=== PATIENT | female | born 1950 | race Caucasian/White ===

== ENCOUNTER 2018-07-26 10:33 | Inpatient (IN) | payer MEDICARE, MEDICAID ==
[2018-07-26 11:04] LABS: ABSOLUTE BASOPHILS # (AUTO) 0.1 10^3/uL (0.0-0.2); ABSOLUTE EOSINOPHILS # (AUTO) 0.1 10^3/uL (0.0-0.6); ABSOLUTE LYMPHOCYTES (AUTO) 0.5 10^3/uL (0.5-4.7); ABSOLUTE MONOCYTES (AUTO) 0.6 10^3/uL (0.1-1.4); ABSOLUTE NEUT (AUTO) 4.4 10^3/uL (1.7-8.2); BASOPHILS % (AUTO) 1.2 % (0-2); EOSINOPHILS % (AUTO) 1.5 % (0-6); HEMATOCRIT 33.7 % (36.0-47.0); HEMOGLOBIN 10.9 g/dL (12.0-15.5); MEAN CORPUSCULAR HEMOGLOBIN 27.2 pg (27.0-33.4); MEAN CORPUSCULAR HGB CONC 32.4 g/dL (32.0-36.0); MEAN CORPUSCULAR VOLUME 84 fl (80-97); MONOCYTES % (AUTO) 11.3 % (3-13); PLATELET COUNT 153 10^3/uL (150-450); RED BLOOD COUNT 4.03 10^6/uL (3.72-5.28); RED CELL DISTRIBUTION WIDTH 18.9 % (11.5-14.0); TOTAL CELLS COUNTED % (AUTO) 100 %; WHITE BLOOD COUNT 5.7 10^3/uL (4.0-10.5)
[2018-07-26 11:14] LABS: ALANINE AMINOTRANSFERASE 62 U/L (9-52); ALKALINE PHOSPHATASE 105 U/L (38-126); ANION GAP 15 (5-19); ASPARTATE AMINO TRANSFERASE 25 U/L (14-36); BILIRUBIN,DIRECT 1.6 mg/dL (0.0-0.4); BILIRUBIN,TOTAL 2.2 mg/dL (0.2-1.3); BLOOD UREA NITROGEN 20 mg/dL (7-20); CALCIUM 8.6 mg/dL (8.4-10.2); CARBON DIOXIDE 28 mmol/L (22-30); CHLORIDE 99 mmol/L (98-107); CREATINE KINASE 27 U/L (30-135); GLUCOSE 119 mg/dL (75-110); POTASSIUM 3.8 mmol/L (3.6-5.0); TOTAL PROTEIN 6.6 g/dL (6.3-8.2)
--- NOTE | 2018-07-26 11:19 | RADIOLOGY REPORT (SQ) ---
EXAM DESCRIPTION: CHEST SINGLE VIEW COMPLETED DATE/TIME: 07/26/2018 11:02 am REASON FOR STUDY: SOB COMPARISON: None. EXAM PARAMETERS: NUMBER OF VIEWS: One view. TECHNIQUE: Single frontal radiographic view of the chest acquired. RADIATION DOSE: NA LIMITATIONS: None. FINDINGS: LUNGS AND PLEURA: No opacities, masses or pneumothorax. No pleural effusion. MEDIASTINUM AND HILAR STRUCTURES: No masses. Contour normal. HEART AND VASCULAR STRUCTURES: The heart is enlarged. No failure. BONES: No acute findings. HARDWARE: Sternotomy wires are in place. OTHER: No other significant finding. IMPRESSION: Cardiomegaly. No failure. No consolidation TECHNICAL DOCUMENTATION: JOB ID: [id number] [employer]- All Rights Reserved Reading location - IP/workstation name: [email or web address]
[2018-07-26 11:26] LABS: CREATINE KINASE MB 0.83 ng/mL (<4.55); INTERNATIONAL RATION (INR) 1.26; NT PRO BNP 9030 pg/mL (5-900); PROTHROMBIN TIME 16.4 SEC (11.4-15.4)
[2018-07-26 11:27] LABS: PARTIAL THROMBOPLASTIN TIME 36.3 SEC (23.5-35.8)
[2018-07-26 11:31] LABS: TROPONIN I < 0.012 ng/mL
[2018-07-26 12:07] LABS: APPEARANCE,URINE SLIGHTLY-CLOUDY; BILIRUBIN,URINE NEGATIVE (NEGATIVE); COLOR,URINE YELLOW; GLUCOSE, URINE NEGATIVE (NEGATIVE); KETONES,URINE NEGATIVE (NEGATIVE); LEUKOCYTE ESTERASE,URINE NEGATIVE (NEGATIVE); NITRITE,URINE NEGATIVE (NEGATIVE); PROTEIN,URINE 100 mg/dL (NEGATIVE)
--- NOTE | 2018-07-26 12:08 | ER Document Report ---
ED General - General Chief Complaint: Shortness Of Breath Stated Complaint: SHORTNESS OF BREATH Time Seen by Provider: 07/26/18 11:58 Notes: Patient says that she is feeling short of breath and congested with cough productive of some small amount of phlegm. She has a history of COPD, stopped smoking 10 years ago, and is also been told in the past that she has CHF. She has heart disease including stents in her coronary arteries and an aortic valve replacement in September of this year. She also has atrial fibrillation which was first discovered in September. She is on warfarin. Has not noted any fevers. She does not have home oxygen and is not on any current steroids, etc. Patient traveled here by plane to visit from [place] one week ago. She has been having this chest congestion and difficulty breathing since arriving here. She also has chronic swelling of both legs, but notes that both lower legs started getting red when she was traveling here last week. She has had both knees replaced. TRAVEL OUTSIDE OF THE [place] IN LAST 30 DAYS: No - Related Data Allergies/Adverse Reactions: haloperidol [From Haldol] Allergy (Verified 07/26/18 11:29) lorazepam [From Ativan] Allergy (Verified 07/26/18 11:29) Past Medical History - Social History Smoking Status: Former Smoker - Stopped about 10 years ago. Chew tobacco use (# tins/day): No Frequency of alcohol use: None Drug Abuse: None Family History: Reviewed & Not Pertinent Patient has suicidal ideation: No Patient has homicidal ideation: No - Past Medical History Cardiac Medical History: Reports: Hx Atrial Fibrillation, Hx Congestive Heart Failure, Hx Coronary Artery Disease, Hx Hypertension, Other - Aortic valve replaced in September, Pulmonary Medical History: Reports: Hx COPD Past Surgical History: Reports: Hx Cardiac Catheterization - 2 stents, Hx Cardiac Surgery - Aortic valve replacement., Hx Hysterectomy, Hx Orthopedic Surgery - Bilateral TKR Review of Systems - Review of Systems Notes: REVIEW OF SYSTEMS: CONSTITUTIONAL : Denies fever. EENT: Denies eye, ear, nose or mouth or throat pain or other symptoms. CARDIOVASCULAR: Denies chest pain. Chronic lymphedema of the lower legs. RESPIRATORY: See HPI. GASTROINTESTINAL: Denies abdominal pain or nausea, vomiting, or diarrhea. GENITOURINARY: Denies difficulty or painful urinating, urinary frequency, blood in urine. MUSCULOSKELETAL: Denies back or neck pain. Denies joint pain or swelling. SKIN: Denies rash or skin lesions. Erythema of the lower extremities from the knees to the feet bilateral. NEUROLOGICAL: Denies LOC or altered mental status. Denies headache. Denies sensory loss or motor deficits. ALL OTHER SYSTEMS REVIEWED AND NEGATIVE. Physical Exam - Vital signs Vitals: Pulse Ox 100 07/26/18 10:45 Interpretation: Normal Notes: PHYSICAL EXAMINATION: GENERAL: Well-appearing, in no acute distress. HEAD: Atraumatic, normocephalic. EYES: Pupils equal round and reactive to light, extraocular movements intact. ENT: oropharynx clear without exudates. Moist mucous membranes. NECK: Normal range of motion, supple. LUNGS: Breath sounds with bilateral wheezes but good airflow. HEART: Irregularly irregular rate and rhythm. Unable to appreciate a murmur. ABDOMEN: Soft, nontender. No guarding or rebound. No masses. BACK: No tenderness throughout entire back. EXTREMITIES: Bilateral chronic lyymphedema with erythema and warmth to the touch from the knees to the feet. NEUROLOGICAL: Normal speech, normal gait. Normal sensory, motor, and reflex exams. Awake, alert, and oriented x3. Cranial nerves normal. PSYCH: Normal mood, normal affect. SKIN: Warm, dry, no rashes. Course - Re-evaluation Re-evalutation: 07/26/18 15:46 Patient had a couple of nebulizer treatments during her stay. They helped her breathing and she was comfortable. CTA was obtained but was negative for pulmonary emboli. Hospitalist contacted and will admit the patient for further care of her COPD exacerbation, CHF, and cellulitis of the legs. 07/26/18 15:52 Patient's INR is only 1.26 which is not in the therapeutic range desired. On questioning, patient acknowledges that she missed taking a few of her Coumadin pills this past week during her travels. - Vital Signs Vital signs: Temp Pulse Resp BP Pulse Ox 19 142/89 H 97 07/26/18 14:11 07/26/18 14:11 07/26/18 14:11 - Laboratory Result Diagrams: 07/26/18 10:40 07/26/18 10:40 Laboratory results interpreted by me: 07/26/18 07/26/18 07/26/18 10:40 10:40 10:40 Hgb 10.9 L Hct 33.7 L RDW 18.9 H Lymphocytes % 9.0 L PT APTT Est GFR (Non-Af Amer) 55 L Glucose 119 H Total Bilirubin 2.2 H Direct Bilirubin 1.6 H ALT 62 H Creatine Kinase 27 L NT-Pro-B Natriuret Pep 9030 H Urine Protein Urine Urobilinogen 07/26/18 07/26/18 10:40 11:20 Hgb Hct RDW Lymphocytes % PT 16.4 H APTT 36.3 H Est GFR (Non-Af Amer) Glucose Total Bilirubin Direct Bilirubin ALT Creatine Kinase NT-Pro-B Natriuret Pep Urine Protein 100 H Urine Urobilinogen 4.0 H - Diagnostic Test Radiology results interpreted by me: 07/26/18 12:10 Chest x-ray shows cardiomegaly but no overt failure. - EKG Interpretation by Me Rate: Tachycardia - Rate of 112. Rhythm: A.Fib Critical Care Note - Critical Care Note Total time excluding time spent on procedures (mins): 40 Discharge - Discharge Clinical Impression: CHF (congestive heart failure), Cellulitis of left lower leg, Cellulitis of right leg, COPD exacerbation Condition: Stable Disposition: ADMITTED INPATIENT Admitting Provider: Hospitalist Unit Admitted: [facility]
[2018-07-26] MEDS ORDERED: IPRATROPIUM/ALBUTEROL 0.5-2.5 MG/3 ML AMPUL NEB ONE (12:10)
[2018-07-26] MEDS ORDERED: FUROSEMIDE INJ/PF 20 MG/2 ML SDV IV ONE (12:11)
[2018-07-26] MEDS ORDERED: ONDANSETRON HCL INJ/PF 4 MG/2 ML SDV IV ONE (12:17)
[2018-07-26] MEDS ORDERED: METHYLPREDNISOLONE INJ 125 MG/2 ML SDV IV ONE (13:20)
--- NOTE | 2018-07-26 14:16 | RADIOLOGY REPORT (SQ) ---
EXAM DESCRIPTION: CTA CHEST COMPLETED DATE/TIME: 07/26/2018 2:03 pm REASON FOR STUDY: Chr lymphedema legs, erythema,fly from [place] 1 wk shortness of breath, chest pain COMPARISON: None. TECHNIQUE: CT scan of the chest performed using helical scanning technique with dynamic intravenous contrast injection. Images reviewed with lung, soft tissue and bone windows. Reconstructed coronal and sagittal MPR images reviewed. Additional 3 dimensional post-processing performed to develop Maximal Intensity Projection images (HI P). All images stored on PACS. All CT scanners at this facility use dose modulation, iterative reconstruction, and/or weight based d osing when appropriate to reduce radiation dose to as low as reasonably achievable (ALARA). [facility]: Dose Right [facility]: CareDose [facility]: Dose Right [facility]: Teradose 4D [facility]: Headroom CONTRAST TYPE AND DOSE: 70 mL Omnipaque 350- low osmolar. Contrast bolus optimized for the pulmonary arteries. Not diagnostic for the aorta. RENAL FUNCTION: Creatinine 1.0 RADIATION DOSE: CT Rad equipment meets quality standard of care and radiation dose reduction techniq ues were employed. CTDIvol: 29.8 - 35.9 mGy. DLP: 1327 mGy-cm. . LIMITATIONS: None. FINDINGS: LUNGS AND PLEURA: Minimal airspace disease at both lung bases, likely atelectasis. Pneumo wallace could not entirely be excluded. No perihilar airspace disease worrisome for pulmonary edema. No pleural effusion. No pneumothorax. No worrisome pulmonary nodules. AORTA AND GREAT VESSELS: No aneurysm. Contrast bolus not optimized for the aorta. HEART: No pericardial effusion. Old sternotomy for aortic valve replacement. Calcified coronary jeremiah kary with old CABG. There is moderate to marked cardiomegaly. PULMONARY ARTERIES: No emboli visualized in the main pulmonary arteries or the segmental branches. HILAR AND MEDIASTINAL STRUCTURES: No identified masses or abnormal nodes. HARDWARE: Sternotomy with aortic valve UPPER ABDOMEN: Small amount of ascites in the upper abdomen THYROID AND OTHER SOFT TISSUES: No masses. No adenopathy. BONES: No acute or significant finding. 3D MIPS: Confirm above findings. OTHER: No other significant finding. IMPRESSION: No CT angio evidence of acute pulmonary emboli. Minimal bibasilar airspace disease likely atelectasis COMMENT: Quality ID # [id number]: Final reports with documentation of one or more dose reduction techniques (e.g., Automated exposure control, adjustment of the mA and/or kV according to patient size, use of iterative reconstruction technique) TECHNICAL DOCUMENTATION: JOB ID: [id number] [employer]- All Rights Reserved Reading location - IP/workstation name: [facility]
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
[2018-07-26] MEDS: DOCUSATE SODIUM 100 MG CAPSULE PO SCH (19:34)
[2018-07-26] MEDS: ASPIRIN 81 MG TABLET, CHEWABLE PO SCH (19:34)
[2018-07-26] MEDS: LEVOFLOXACIN 750 MG/D5W RTU 750 MG/150 ML RTUPB IV SCH (19:34)
[2018-07-26] MEDS: LEVALBUTEROL HCL NEB 1.25 MG/3 ML AMPUL NEB SCH ×2 (20:06→23:55)
[2018-07-26] MEDS ORDERED: NITROGLYCERIN 0.4 MG/TAB 25 TAB/BOTTLE ONE (21:22)
[2018-07-26] MEDS: VENLAFAXINE HCL 75 MG TABLET PO SCH (21:26)
[2018-07-26] MEDS: FUROSEMIDE INJ/PF 40 MG/4 ML SDV IV SCH (21:27)
[2018-07-26] MEDS ORDERED: WARFARIN SODIUM 2.5 MG TABLET PO SCH (22:00)
[2018-07-26] MEDS: MELATONIN 5 MG TABLET PO PRN (23:26)
[2018-07-27] MEDS: OXYCODONE-ACETAMINOPHEN 5-325 MG TABLET PO PRN ×2 (03:18→17:03)
[2018-07-27] MEDS: LEVALBUTEROL HCL NEB 1.25 MG/3 ML AMPUL NEB SCH ×5 (03:45→19:55)
[2018-07-27 05:00] LABS: HEMATOCRIT 32.4 % (36.0-47.0); HEMOGLOBIN 10.5 g/dL (12.0-15.5); MEAN CORPUSCULAR HGB CONC 32.5 g/dL (32.0-36.0); MEAN CORPUSCULAR VOLUME 83 fl (80-97); PLATELET COUNT 139 10^3/uL (150-450); RED CELL DISTRIBUTION WIDTH 18.8 % (11.5-14.0); WHITE BLOOD COUNT 3.5 10^3/uL (4.0-10.5)
[2018-07-27 05:06] LABS: INTERNATIONAL RATION (INR) 1.27; PROTHROMBIN TIME 16.5 SEC (11.4-15.4)
[2018-07-27 05:23] LABS: ALBUMIN 3.8 g/dL (3.5-5.0); ANION GAP 17 (5-19); BLOOD UREA NITROGEN 21 mg/dL (7-20); CARBON DIOXIDE 26 mmol/L (22-30); CHLORIDE 99 mmol/L (98-107); GLUCOSE 185 mg/dL (75-110); POTASSIUM 4.2 mmol/L (3.6-5.0); SODIUM 141.5 mmol/L (137-145); TOTAL PROTEIN 6.8 g/dL (6.3-8.2)
[2018-07-27 05:25] LABS: ALANINE AMINOTRANSFERASE 49 U/L (9-52); ALKALINE PHOSPHATASE 81 U/L (38-126); ASPARTATE AMINO TRANSFERASE 24 U/L (14-36); BILIRUBIN,DIRECT 1.6 mg/dL (0.0-0.4); CALCIUM 8.8 mg/dL (8.4-10.2)
[2018-07-27 06:15] LABS: ARTERIAL BLOOD BASE EXCESS 4.3 mmol/L; ARTERIAL BLOOD FIO2 21%; ARTERIAL BLOOD H2CO3 1.72 mmol/L (1.05-1.35); ARTERIAL BLOOD O2 SATURATION 94.9 % (94-98); ARTERIAL BLOOD PH 7.35 (7.35-7.45); ARTERIAL BLOOD PO2 79.1 mmHg (80-100); ARTERIAL BLOOD TOTAL CO2 32.7 mmol/L (21-25)
[2018-07-27] MEDS: LANSOPRAZOLE 15 MG TAB.RAP.DR PO SCH ×2 (06:41→17:04)
[2018-07-27] MEDS ORDERED: MAGNESIUM SULFATE/D5W 1 GM/100 ML RTUPB IV ONE (08:45)
--- NOTE | 2018-07-27 08:47 | PDOC PROGRESS REPORT ---
Subjective Progress Note for:: 07/27/18 Subjective:: 07/27/2018. No acute events overnight. Patient is stating that she could not get a good night sleep because of having shortness of breath and anxiety. She was not able to tolerate BiPAP. On my encounter patient just woke up receiving her neb treatments she does not seem to be in any distress and she is saying compared to yesterday she is feeling better, she has been p.o. tolerant and she is having normal bowel and bladder functions. She denies any fever, chest pain , nausea, vomiting, diarrhea, constipation or any urinary symptoms. She stating that her mechanical aortic valve is bioprosthetic but he is she does not remember what type of stent she has. We will attempt to get medical records. Blood pressure has been within normal limits, she has been afebrile, pulse rate of 52-116, FiO2 of 20-32%, saturating in the 90s. CBC CMP within normal limits , INR today is 1.27, ABG she has a carbon dioxide of 57 and PO2 of 79%, room air , CMP looks within normal limits with a BUN of 21 and creatinine of 1.24, A1c is 5.9,. Plan is to continue strict in and out, empiric antibiotics, IV steroids, nebs, BiPAP. We will get a new echo and also attempt to get her medical records. Reason For Visit: CHF,COPD EXACERBATION Physical Exam Vital Signs: Temp Pulse Resp BP Pulse Ox 97.9 F 87 16 125/78 94 07/27/18 07:11 07/27/18 08:39 07/27/18 08:39 07/27/18 07:11 07/27/18 08:39 Intake & Output 07/26/18 07/27/18 07/28/18 06:59 06:59 06:59 Intake Total 508 Output Total 1999 Balance -1492 Weight 136.2 kg Results Laboratory Results: 07/27/18 04:21 07/27/18 04:21 07/27/18 07/27/18 07/27/18 04:21 04:21 05:44 WBC 3.5 L RBC 3.90 Hgb 10.5 L Hct 32.4 L MCV 83 MCH 27.0 MCHC 32.5 RDW 18.8 H Plt Count 139 L Carbonic Acid 1.72 H HCO3/H2CO3 Ratio 18:1 ABG pH 7.35 ABG pCO2 57.0 H ABG pO2 79.1 L ABG HCO3 31.0 H ABG O2 Saturation 94.9 ABG Base Excess 4.3 FiO2 21% Sodium 141.5 Potassium 4.2 Chloride 99 Carbon Dioxide 26 Anion Gap 17 BUN 21 H Creatinine 1.24 Est GFR ( Amer) 52 L Est GFR (Non-Af Amer) 43 L Glucose 185 H Calcium 8.8 Magnesium 1.5 L Total Bilirubin 2.0 H AST 24 ALT 49 Alkaline Phosphatase 81 Total Protein 6.8 Albumin 3.8 Impressions: Chest X-Ray 07/26/18 10:45 IMPRESSION: Cardiomegaly. No failure. No consolidation Chest/Abdomen CTA 07/26/18 13:22 IMPRESSION: No CT angio evidence of acute pulmonary emboli. Minimal bibasilar airspace disease likely atelectasis Assessment & Plan - Diagnosis (1) COPD exacerbation Is this a current diagnosis for this admission?: Yes Plan: Nebs, empiric antibiotics, BiPAP, IV steroids. RR 16-20, SPO2 94% on 3 L with FiO2 of 32%. 07/26/2018 CTA negative for any embolus. (2) Stasis dermatitis of both legs Is this a current diagnosis for this admission?: Yes Plan: Will start on diuretics, leg elevation, strict in and out, cardiac diet. (3) CHF (congestive heart failure) Is this a current diagnosis for this admission?: Yes Plan: Continue strict in and out, volume restriction, cardiac diet, diuretics. Fluid balance -1400 07/27/2018. 2D echo shows LV ejection fraction within normal limits. RVSP 30- 40 mmHg. (4) CAD (coronary artery disease) Is this a current diagnosis for this admission?: Yes Plan: Status post PCI to his stents. Patient is not on antiplatelets. Records unavailable. Continue statins, antiplatelets, beta blockers, TAMMY. Get the records. (5) Hx of aortic valve replacement Is this a current diagnosis for this admission?: No Plan: and September 2017. Bioprosthetic as per patient. Patient is INR subtherapeutic. Will start warfarin with a goal of INR 2.5-3.5 Coumadin 5 mg today. INR tomorrow. We will try to get records. (6) Hypertension Is this a current diagnosis for this admission?: Yes Plan: Restart home meds. Normotensive (7) Hyperlipidemia Is this a current diagnosis for this admission?: Yes Plan: Restart home meds. Recommend diet and lifestyle modification. (8) Hx of migraine headaches Is this a current diagnosis for this admission?: Yes Plan: Start home meds. (9) A-fib Qualifiers: Atrial fibrillation type: chronic Qualified Code(s): I48.2 - Chronic atrial fibrillation Is this a current diagnosis for this admission?: No Plan: [id number] Score 4. Rate controlled, continue beta-blockers continue Coumadin. Daily INR with a goal of 2-2.5.
--- NOTE | 2018-07-27 09:17 | EKG REPORT ---
SEVERITY:- ABNORMAL ECG - ATRIAL FIBRILLATION NONSPECIFIC T ABNORMALITIES, LATERAL LEADS : Confirmed by: Paty Osorio 27-Jul-2018 09:17:22
--- NOTE | 2018-07-27 09:17 | EKG REPORT ---
SEVERITY:- ABNORMAL ECG - ATRIAL FIBRILLATION, V-RATE 74-160 BORDERLINE T WAVE ABNORMALITIES : Confirmed by: Paty Osorio 27-Jul-2018 09:17:28
[2018-07-27] MEDS: GABAPENTIN 300 MG CAPSULE PO SCH (09:20)
[2018-07-27] MEDS: METOPROLOL TARTRATE 50 MG TABLET PO SCH ×2 (09:20→21:10)
[2018-07-27] MEDS: DOCUSATE SODIUM 100 MG CAPSULE PO SCH ×2 (09:20→17:04)
[2018-07-27] MEDS: ASPIRIN 81 MG TABLET, CHEWABLE PO SCH (09:20)
[2018-07-27] MEDS: FUROSEMIDE INJ/PF 40 MG/4 ML SDV IV SCH ×2 (09:21→21:11)
--- NOTE | 2018-07-27 09:41 | XCELERA REPORT ---
[address] [address] Transthoracic Echocardiogram Report Name: BOAZ FREIRE Age: 68 yrs Gender: Female : 1950 Patient Status: Inpatient Patient Location: [address] [place] [address] Study Date: 07/26/2018 06:45 PM Height: 62 in Weight: 303 lb BSA: 2.3 m2 Procedure: A complete two-dimensional transthoracic echocardiogram was performed (2D, M-mode, spectral and color flow Doppler). The study was technically difficult with many images being suboptimal in quality. Reason For Study: CHF exacerbation Ordering Physician: ANGEL RANDHAWA Performed By: Aurea Sierra Interpretation Summary The left ventricular ejection fraction is within normal limits. There is mild concentric left ventricular hypertrophy. The left ventricle is grossly normal size. Wall motion cannot be accurately commented on, but no definite regional wall motion abnormalities noted. Borderline right ventricular enlargement. The left atrium is mildly dilated. The right atrium is mildly dilated. There is no mitral valve stenosis. There is a mild to moderate amount of mitral regurgitation There is mild aortic stenosis There is a peak gradient of 20-25 mm of Hg. There is a trace amount of aortic regurgitation There is a trace to mild amount of tricuspid regurgitation Best estimated right ventricular systolic pressure is elevated at 30-40mmHg. The aortic root is not well visualized. The inferior vena cava appeared dilated and decreased < 50% with respiration (RAP 15-20 mmHg) Minimal pericardial effusion. MMode/2D Measurements & Calculations RVDd: 2.7 cm LVIDd: 6.3 cm FS: 22.4 % Ao root diam: 2.9 cm IVSd: 1.2 cm LVIDs: 4.9 cm EDV(Teich): 204.5 ml Ao root area: 6.8 cm2 LVPWd: 0.97 cm ESV(Teich): 114.0 ml LA dimension: 3.9 cm EF(Teich): 44.3 % Doppler Measurements & Calculations MV E max jeramy: MV P1/2t max jeramy: Ao V2 max: LV V1 max P.2 cm/sec 129.1 cm/sec 218.5 cm/sec 4.2 mmHg MV P1/2t: 54.6 msec Ao max PG: LV V1 max: MVA(P1/2t): 4.0 cm2 19.1 mmHg 102.5 cm/sec MV dec slope: 692.0 cm/sec2 MV dec time: 0.17 sec PA V2 max: PI end-d jeramy: TR max jeramy: MV P1/2t-pr_phl: 85.1 cm/sec 129.4 cm/sec 257.0 cm/sec 54.6 msec PA max P.9 mmHg TR max P.4 mmHg Left Ventricle The left ventricle is grossly normal size. There is mild concentric left ventricular hypertrophy. The left ventricular ejection fraction is within normal limits. LV diastolic function could not be adequately assessed due to atrial fibrilation. Wall motion cannot be accurately commented on, but no definite regional wall motion abnormalities noted. Right Ventricle Borderline right ventricular enlargement. There is normal right ventricular wall thickness. Right ventricular function cannot be assessed due to poor image quality. Atria The right atrium is mildly dilated. The left atrium is mildly dilated. Interarterial septum not well visualized and not well dopplered. Cannot comment on ASD/PFO presence. Mitral Valve There is mild mitral leaflet calcification. There is mild mitral annular calcification. There is no mitral valve stenosis. There is a mild to moderate amount of mitral regurgitation. Aortic Valve The aortic valve is moderately calcified. There is mild aortic stenosis. There is a peak gradient of 20-25 mm of Hg. There is a trace amount of aortic regurgitation. Tricuspid Valve The tricuspid valve is not well visualized secondary to technical limitations. There is no tricuspid stenosis. There is a trace to mild amount of tricuspid regurgitation. Best estimated right ventricular systolic pressure is elevated at 30-40mmHg. Pulmonic Valve The pulmonic valve is not well visualized. Great Vessels The aortic root is not well visualized. The inferior vena cava appeared dilated and decreased < 50% with respiration (RAP 15-20 mmHg). Effusions Minimal pericardial effusion. : ANGEL RANDHAWA > Paty Osorio
[2018-07-27] MEDS: BUPROPION HCL 100 MG TABLET PO SCH ×2 (13:56→21:08)
[2018-07-27] MEDS ORDERED: WARFARIN SODIUM 2.5 MG TABLET PO SCH (15:10)
[2018-07-27] MEDS: LEVOFLOXACIN 750 MG/D5W RTU 750 MG/150 ML RTUPB IV SCH (20:07)
[2018-07-27] MEDS: WARFARIN SODIUM 3 MG TABLET PO SCH (21:09)
[2018-07-27] MEDS: WARFARIN SODIUM 4 MG TABLET PO SCH (21:09)
[2018-07-27] MEDS: MELATONIN 5 MG TABLET PO PRN (21:10)
[2018-07-27] MEDS: VENLAFAXINE HCL 75 MG TABLET PO SCH (21:10)
[2018-07-27] MEDS: ACETAMINOPHEN 325 MG TABLET PO PRN (21:11)
[2018-07-28] MEDS: OXYCODONE-ACETAMINOPHEN 5-325 MG TABLET PO PRN ×3 (00:14→21:54)
[2018-07-28] MEDS: PROMETHAZINE HCL 25 MG TABLET PO PRN (00:14)
[2018-07-28] MEDS: LEVALBUTEROL HCL NEB 1.25 MG/3 ML AMPUL NEB SCH ×7 (00:29→23:36)
[2018-07-28 05:20] LABS: ABSOLUTE LYMPHOCYTES (AUTO) 0.9 10^3/uL (0.5-4.7); ABSOLUTE MONOCYTES (AUTO) 0.6 10^3/uL (0.1-1.4); ABSOLUTE NEUT (AUTO) 3.8 10^3/uL (1.7-8.2); BASOPHILS % (AUTO) 0.6 % (0-2); EOSINOPHILS % (AUTO) 0.3 % (0-6); HEMATOCRIT 31.9 % (36.0-47.0); HEMOGLOBIN 10.5 g/dL (12.0-15.5); LYMPHOCYTES % (AUTO) 16.8 % (13-45); MEAN CORPUSCULAR HEMOGLOBIN 27.4 pg (27.0-33.4); MEAN CORPUSCULAR HGB CONC 32.8 g/dL (32.0-36.0); MEAN CORPUSCULAR VOLUME 83 fl (80-97); MONOCYTES % (AUTO) 11.2 % (3-13); PLATELET COUNT 148 10^3/uL (150-450); RED BLOOD COUNT 3.82 10^6/uL (3.72-5.28); RED CELL DISTRIBUTION WIDTH 18.5 % (11.5-14.0); SEGMENTED NEUTROPHILS % (AUTO) 71.1 % (42-78); TOTAL CELLS COUNTED % (AUTO) 100 %; WHITE BLOOD COUNT 5.3 10^3/uL (4.0-10.5)
[2018-07-28] MEDS: LANSOPRAZOLE 15 MG TAB.RAP.DR PO SCH ×2 (05:35→17:12)
[2018-07-28] MEDS: BUPROPION HCL 100 MG TABLET PO SCH ×3 (05:35→21:48)
[2018-07-28 06:02] LABS: ALANINE AMINOTRANSFERASE 51 U/L (9-52); ALBUMIN 3.6 g/dL (3.5-5.0); ALKALINE PHOSPHATASE 76 U/L (38-126); ANION GAP 14 (5-19); ASPARTATE AMINO TRANSFERASE 23 U/L (14-36); BILIRUBIN,DIRECT 1.6 mg/dL (0.0-0.4); BILIRUBIN,TOTAL 1.9 mg/dL (0.2-1.3); BLOOD UREA NITROGEN 29 mg/dL (7-20); CALCIUM 8.8 mg/dL (8.4-10.2); CARBON DIOXIDE 30 mmol/L (22-30); CHLORIDE 99 mmol/L (98-107); GLUCOSE 92 mg/dL (75-110); POTASSIUM 3.9 mmol/L (3.6-5.0); SODIUM 142.7 mmol/L (137-145); TOTAL PROTEIN 6.6 g/dL (6.3-8.2)
[2018-07-28] MEDS ORDERED: FUROSEMIDE INJ/PF 40 MG/4 ML SDV IV SCH (08:41)
[2018-07-28] MEDS: DOCUSATE SODIUM 100 MG CAPSULE PO SCH ×2 (09:29→17:12)
[2018-07-28] MEDS: METOPROLOL TARTRATE 50 MG TABLET PO SCH ×2 (09:29→21:48)
[2018-07-28] MEDS: ASPIRIN 81 MG TABLET, CHEWABLE PO SCH (09:29)
[2018-07-28] MEDS: GABAPENTIN 300 MG CAPSULE PO SCH (09:29)
[2018-07-28] MEDS: GUAIFENESIN SYRP 200 MG/10 ML UDC PO SCH ×4 (09:34→21:47)
[2018-07-28] MEDS: SUMATRIPTAN SUCCINATE 50 MG TABLET PO PRN (09:35)
[2018-07-28] MEDS ORDERED: FUROSEMIDE INJ/PF 20 MG/2 ML SDV IV SCH (10:00)
[2018-07-28 10:43] LABS: INTERNATIONAL RATION (INR) 1.19; PROTHROMBIN TIME 15.7 SEC (11.4-15.4)
[2018-07-28] MEDS ORDERED: FUROSEMIDE 40 MG TABLET PO SCH (11:45)
--- NOTE | 2018-07-28 11:47 | PDOC PROGRESS REPORT ---
Subjective Progress Note for:: 07/28/18 Subjective:: 07/27/2018. No acute events overnight. Patient is stating that she could not get a good night sleep because of having shortness of breath and anxiety. She was not able to tolerate BiPAP. On my encounter patient just woke up receiving her neb treatments she does not seem to be in any distress and she is saying compared to yesterday she is feeling better, she has been p.o. tolerant and she is having normal bowel and bladder functions. She denies any fever, chest pain , nausea, vomiting, diarrhea, constipation or any urinary symptoms. She stating that her mechanical aortic valve is bioprosthetic but he is she does not remember what type of stent she has. We will attempt to get medical records. Blood pressure has been within normal limits, she has been afebrile, pulse rate of 52-116, FiO2 of 20-32%, saturating in the 90s. CBC CMP within normal limits , INR today is 1.27, ABG she has a carbon dioxide of 57 and PO2 of 79%, room air , CMP looks within normal limits with a BUN of 21 and creatinine of 1.24, A1c is 5.9,. Plan is to continue strict in and out, empiric antibiotics, IV steroids, nebs, BiPAP. We will get a new echo and also attempt to get her medical records. 07/28/2018. No acute events overnight. 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 She used BiPAP overnight and she tolerated well. Yesterday she was able to walk around the halls without any significant dyspnea on exertion. She is denying any fever , chest pain, chills, nausea, vomiting, diarrhea or any urinary symptoms. Reason For Visit: CHF,COPD EXACERBATION Physical Exam Vital Signs: Temp Pulse Resp BP Pulse Ox 97.8 F 88 16 103/60 98 07/28/18 07:40 07/28/18 08:17 07/28/18 08:17 07/28/18 07:40 07/28/18 08:17 Intake & Output 07/27/18 07/28/18 07/29/18 06:59 06:59 06:59 Intake Total 508 828 Output Total 1999 8003 Balance -1492 -1342 Weight 136.2 kg 131.9 kg General appearance: PRESENT: morbidly obese Head exam: PRESENT: atraumatic, normocephalic Respiratory exam: PRESENT: clear to auscultation ken. ABSENT: rales, rhonchi, wheezes Cardiovascular exam: PRESENT: RRR. ABSENT: diastolic murmur, rubs, systolic murmur GI/Abdominal exam: PRESENT: normal bowel sounds, soft. ABSENT: distended, guarding, mass, organolmegaly, rebound, tenderness Extremities exam: PRESENT: pedal edema - Trace Neurological exam: PRESENT: alert, awake, oriented to person, oriented to place , oriented to time, oriented to situation, CN II-XII grossly intact. ABSENT: motor sensory deficit Results Laboratory Results: 07/28/18 04:59 07/28/18 04:59 07/28/18 07/28/18 04:59 04:59 WBC 5.3 RBC 3.82 Hgb 10.5 L Hct 31.9 L MCV 83 MCH 27.4 MCHC 32.8 RDW 18.5 H Plt Count 148 L Seg Neutrophils % 71.1 Lymphocytes % 16.8 Monocytes % 11.2 Eosinophils % 0.3 Basophils % 0.6 Absolute Neutrophils 3.8 Absolute Lymphocytes 0.9 Absolute Monocytes 0.6 Absolute Eosinophils 0.0 Absolute Basophils 0.0 Sodium 142.7 Potassium 3.9 Chloride 99 Carbon Dioxide 30 Anion Gap 14 BUN 29 H Creatinine 1.41 H Est GFR ( Amer) 45 L Est GFR (Non-Af Amer) 37 L Glucose 92 Calcium 8.8 Magnesium 1.6 Total Bilirubin 1.9 H AST 23 ALT 51 Alkaline Phosphatase 76 Total Protein 6.6 Albumin 3.6 Impressions: Chest X-Ray 07/26/18 10:45 IMPRESSION: Cardiomegaly. No failure. No consolidation Chest/Abdomen CTA 07/26/18 13:22 IMPRESSION: No CT angio evidence of acute pulmonary emboli. Minimal bibasilar airspace disease likely atelectasis Assessment & Plan - Diagnosis (1) COPD exacerbation Is this a current diagnosis for this admission?: Yes Plan: Nebs, empiric antibiotics, BiPAP, IV steroids. 07/28/2018. RR 14-24, SPO2 98 - 100 3 L FiO2 of 32% 07/27/2018. RR 16-20, SPO2 94 3 L FiO2 of 32%. 07/26/2018 CTA negative for any embolus. (2) Stasis dermatitis of both legs Is this a current diagnosis for this admission?: Yes Plan: Improving. Will start on diuretics, leg elevation, strict in and out, cardiac diet. (3) CHF (congestive heart failure) Is this a current diagnosis for this admission?: Yes Plan: Diastolic. SBP 117-132, afebrile, RR 14-24, HR 79-105, SPO2 98 - 200 on 3 L with FiO2 of 32 % Weight 131.9 kg down by 4 kg from admission. Fluid balance -1400 Strict in and out, volume restriction, cardiac diet, diuretics. 07/27/2018. 2D echo shows LV ejection fraction within normal limits. RVSP 30- 40 mmHg. (4) CAD (coronary artery disease) Is this a current diagnosis for this admission?: Yes Plan: Status post PCI to his stents. Patient is not on antiplatelets. Records unavailable. Continue statins, antiplatelets, beta blockers, TAMMY. Get the records. (5) Hx of aortic valve replacement Is this a current diagnosis for this admission?: No Plan: Replaced and September 2017. Bioprosthetic as per patient. Patient is INR subtherapeutic. Will start warfarin with a goal of INR 2.5-3.5 Coumadin 5 mg today. INR tomorrow. We will try to get records. (6) Hypertension Is this a current diagnosis for this admission?: Yes Plan: Restart home meds. Normotensive (7) Hyperlipidemia Is this a current diagnosis for this admission?: Yes Plan: Restart home meds. Recommend diet and lifestyle modification. (8) Hx of migraine headaches Is this a current diagnosis for this admission?: Yes Plan: Start home meds. (9) A-fib Qualifiers: Atrial fibrillation type: chronic Qualified Code(s): I48.2 - Chronic atrial fibrillation Is this a current diagnosis for this admission?: No Plan: [id number] Score 4. Rate controlled, continue beta-blockers continue Coumadin. Daily INR with a goal of 2-2.5.
[2018-07-28] MEDS: FUROSEMIDE 20 MG TABLET PO SCH (17:15)
[2018-07-28] MEDS ORDERED: WARFARIN SODIUM 4 MG TABLET ONE (21:37)
[2018-07-28] MEDS ORDERED: VENLAFAXINE HCL 75 MG TABLET ONE (21:38)
[2018-07-28] MEDS: LEVOFLOXACIN 750 MG/D5W RTU 750 MG/150 ML RTUPB IV SCH (21:47)
[2018-07-28] MEDS: WARFARIN SODIUM 3 MG TABLET PO SCH (21:47)
[2018-07-28] MEDS: WARFARIN SODIUM 4 MG TABLET PO SCH (22:20)
[2018-07-28] MEDS: VENLAFAXINE HCL 75 MG TABLET PO SCH (22:20)
[2018-07-29] MEDS: LEVALBUTEROL HCL NEB 1.25 MG/3 ML AMPUL NEB SCH ×6 (04:14→23:37)
[2018-07-29] MEDS: BUPROPION HCL 100 MG TABLET PO SCH ×3 (06:06→21:33)
[2018-07-29] MEDS: LANSOPRAZOLE 15 MG TAB.RAP.DR PO SCH ×2 (06:06→17:27)
[2018-07-29 07:01] LABS: ABSOLUTE EOSINOPHILS # (AUTO) 0.1 10^3/uL (0.0-0.6); ABSOLUTE LYMPHOCYTES (AUTO) 1.1 10^3/uL (0.5-4.7); ABSOLUTE MONOCYTES (AUTO) 0.6 10^3/uL (0.1-1.4); ABSOLUTE NEUT (AUTO) 3.1 10^3/uL (1.7-8.2); BASOPHILS % (AUTO) 0.9 % (0-2); EOSINOPHILS % (AUTO) 1.2 % (0-6); HEMATOCRIT 35.6 % (36.0-47.0); HEMOGLOBIN 11.6 g/dL (12.0-15.5); MEAN CORPUSCULAR HEMOGLOBIN 27.3 pg (27.0-33.4); MEAN CORPUSCULAR HGB CONC 32.7 g/dL (32.0-36.0); MEAN CORPUSCULAR VOLUME 83 fl (80-97); MONOCYTES % (AUTO) 12.5 % (3-13); PLATELET COUNT 149 10^3/uL (150-450); RED BLOOD COUNT 4.27 10^6/uL (3.72-5.28); RED CELL DISTRIBUTION WIDTH 18.9 % (11.5-14.0); SEGMENTED NEUTROPHILS % (AUTO) 63.4 % (42-78); TOTAL CELLS COUNTED % (AUTO) 100 %; WHITE BLOOD COUNT 4.9 10^3/uL (4.0-10.5)
[2018-07-29 07:06] LABS: INTERNATIONAL RATION (INR) 1.16; PROTHROMBIN TIME 15.4 SEC (11.4-15.4)
[2018-07-29 07:31] LABS: ALANINE AMINOTRANSFERASE 46 U/L (9-52); ALBUMIN 3.9 g/dL (3.5-5.0); ALKALINE PHOSPHATASE 89 U/L (38-126); ANION GAP 15 (5-19); ASPARTATE AMINO TRANSFERASE 24 U/L (14-36); BILIRUBIN,DIRECT 1.4 mg/dL (0.0-0.4); BILIRUBIN,TOTAL 1.7 mg/dL (0.2-1.3); BLOOD UREA NITROGEN 28 mg/dL (7-20); CALCIUM 8.7 mg/dL (8.4-10.2); CARBON DIOXIDE 32 mmol/L (22-30); CHLORIDE 95 mmol/L (98-107); GLUCOSE 78 mg/dL (75-110); TOTAL PROTEIN 6.9 g/dL (6.3-8.2)
[2018-07-29] MEDS: ASPIRIN 81 MG TABLET, CHEWABLE PO SCH (08:41)
[2018-07-29] MEDS: METOPROLOL TARTRATE 50 MG TABLET PO SCH ×2 (08:41→21:33)
[2018-07-29] MEDS: DOCUSATE SODIUM 100 MG CAPSULE PO SCH ×4 (08:41→17:27)
[2018-07-29] MEDS: FUROSEMIDE 20 MG TABLET PO SCH ×2 (08:41→17:27)
[2018-07-29] MEDS: GUAIFENESIN SYRP 200 MG/10 ML UDC PO SCH ×4 (08:42→21:34)
[2018-07-29] MEDS: GABAPENTIN 300 MG CAPSULE PO SCH (08:42)
[2018-07-29] MEDS: SUMATRIPTAN SUCCINATE 50 MG TABLET PO PRN (08:42)
[2018-07-29] MEDS: PROMETHAZINE HCL 25 MG TABLET PO PRN ×2 (08:46→19:45)
[2018-07-29] MEDS ORDERED: BISACODYL 5 MG TABEC PO PRN (11:40)
[2018-07-29] MEDS ORDERED: POLYETHYLENE GLYCOL 3350 POWDER 17 GM/1 PACKET PO PRN (11:41)
--- NOTE | 2018-07-29 11:51 | PDOC PROGRESS REPORT ---
Subjective Progress Note for:: 07/29/18 Subjective:: 07/27/2018. No acute events overnight. Patient is stating that she could not get a good night sleep because of having shortness of breath and anxiety. She was not able to tolerate BiPAP. On my encounter patient just woke up receiving her neb treatments she does not seem to be in any distress and she is saying compared to yesterday she is feeling better, she has been p.o. tolerant and she is having normal bowel and bladder functions. She denies any fever, chest pain , nausea, vomiting, diarrhea, constipation or any urinary symptoms. She stating that her mechanical aortic valve is bioprosthetic but he is she does not remember what type of stent she has. We will attempt to get medical records. Blood pressure has been within normal limits, she has been afebrile, pulse rate of 52-116, FiO2 of 20-32%, saturating in the 90s. CBC CMP within normal limits , INR today is 1.27, ABG she has a carbon dioxide of 57 and PO2 of 79%, room air , CMP looks within normal limits with a BUN of 21 and creatinine of 1.24, A1c is 5.9,. Plan is to continue strict in and out, empiric antibiotics, IV steroids, nebs, BiPAP. We will get a new echo and also attempt to get her medical records. 07/28/2018. No acute events overnight. 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 She used BiPAP overnight and she tolerated well. Yesterday she was able to walk around the halls without any significant dyspnea on exertion. She is denying any fever , chest pain, chills, nausea, vomiting, diarrhea or any urinary symptoms. 07/29/2018. No acute events overnight. Patient was not able to tolerate her BiPAP however she says she had a good night sleep. On my encounter patient is resting comfortably in her bed in no apparent distress on 3 L of nasal cannula. She is p.o. tolerant and she was able to walk in the hallways with oxygen. She has not had a bowel movement for the last 2 days otherwise she is denying any fever, chills, nausea, vomiting, diarrhea or any constipation. She also wants to be restarted on Xanax that she takes at home nightly. Reason For Visit: CHF,COPD EXACERBATION Physical Exam Vital Signs: Temp Pulse Resp BP Pulse Ox 98.5 F 83 20 126/78 H 100 07/29/18 08:35 07/29/18 08:35 07/29/18 08:35 07/29/18 08:35 07/29/18 08:35 Intake & Output 07/28/18 07/29/18 07/30/18 06:59 06:59 06:59 Intake Total 828 696 Output Total 2170 300 Balance -1342 396 Weight 131.9 kg 131.8 kg 131.8 kg General appearance: PRESENT: no acute distress, well-developed, well-nourished Head exam: PRESENT: atraumatic, normocephalic Respiratory exam: PRESENT: clear to auscultation ken, decreased breath sounds. ABSENT: rales, rhonchi, wheezes Cardiovascular exam: PRESENT: RRR. ABSENT: diastolic murmur, rubs, systolic murmur GI/Abdominal exam: PRESENT: normal bowel sounds, soft. ABSENT: distended, guarding, mass, organolmegaly, rebound, tenderness Extremities exam: PRESENT: full ROM, other - Bilateral stasis dermatitis has improved.. ABSENT: calf tenderness, clubbing, pedal edema Neurological exam: PRESENT: alert, awake, oriented to person, oriented to place , oriented to time, oriented to situation, CN II-XII grossly intact. ABSENT: motor sensory deficit Results Laboratory Results: 07/29/18 06:26 07/29/18 06:26 07/29/18 07/29/18 06:26 06:26 WBC 4.9 RBC 4.27 Hgb 11.6 L Hct 35.6 L MCV 83 MCH 27.3 MCHC 32.7 RDW 18.9 H Plt Count 149 L Seg Neutrophils % 63.4 Lymphocytes % 22.0 Monocytes % 12.5 Eosinophils % 1.2 Basophils % 0.9 Absolute Neutrophils 3.1 Absolute Lymphocytes 1.1 Absolute Monocytes 0.6 Absolute Eosinophils 0.1 Absolute Basophils 0.0 Sodium 142.0 Potassium 4.0 Chloride 95 L Carbon Dioxide 32 H Anion Gap 15 BUN 28 H Creatinine 1.34 H Est GFR ( Amer) 48 L Est GFR (Non-Af Amer) 40 L Glucose 78 Calcium 8.7 Magnesium 1.6 Total Bilirubin 1.7 H AST 24 ALT 46 Alkaline Phosphatase 89 Total Protein 6.9 Albumin 3.9 07/27/18 22:15 Sputum Gram Stain - Final Impressions: Chest X-Ray 07/26/18 10:45 IMPRESSION: Cardiomegaly. No failure. No consolidation Chest/Abdomen CTA 07/26/18 13:22 IMPRESSION: No CT angio evidence of acute pulmonary emboli. Minimal bibasilar airspace disease likely atelectasis Assessment & Plan - Diagnosis (1) COPD exacerbation Is this a current diagnosis for this admission?: Yes Plan: Nebs, empiric antibiotics, BiPAP . Switch steroids to p.o. 07/29/2018 RR 18-20, pulse 69-93, SPO2 100% on 2 L FiO2 32%. 07/28/2018. RR 14-24, SPO2 98 - 100 3 L FiO2 of 32% 07/27/2018. RR 16-20, SPO2 94 3 L FiO2 of 32%. 07/26/2018 CTA negative for any embolus. On 2 L of home oxygen. Plan is to wean her off to 2 L of possible and discharged home tomorrow. (2) Stasis dermatitis of both legs Is this a current diagnosis for this admission?: Yes Plan: Improved. Will start on diuretics, leg elevation, strict in and out, cardiac diet. (3) CHF (congestive heart failure) Is this a current diagnosis for this admission?: Yes Plan: Diastolic. SBP 103-126, temperature 98.5, pulse 69-93, SPO2 100% on 2 L FiO2 32%. Weight: 131.8 kg down by about 4 kg since admission. Strict in and out, volume restriction, cardiac diet, diuretics. 07/27/2018. 2D echo shows LV ejection fraction within normal limits. RVSP 30- 40 mmHg. (4) CAD (coronary artery disease) Is this a current diagnosis for this admission?: Yes Plan: Status post PCI to his stents. Patient is not on antiplatelets. Records unavailable. Continue statins, antiplatelets, beta blockers, TAMMY. Get the records. (5) Hx of aortic valve replacement Is this a current diagnosis for this admission?: No Plan: Replaced and September 2017. Bioprosthetic as per patient. Patient is INR subtherapeutic. Will start warfarin with a goal of INR 2.5-3.5 She was scheduled to get 7 mg Coumadin yesterday but for some reason she only received 4 Called pharmacy to make sure that she gets 7 mg today. INR tomorrow. Adjust warfarin daily with a goal of INR of 2.3 - 3.5. (6) Hypertension Is this a current diagnosis for this admission?: Yes Plan: Controlled. SBP 103-126, temperature 98.5, pulse 69-93, SPO2 100% on 2 L FiO2 32%. (7) Hyperlipidemia Is this a current diagnosis for this admission?: Yes Plan: Restart home meds. Recommend diet and lifestyle modification. (8) Hx of migraine headaches Is this a current diagnosis for this admission?: Yes Plan: Start home meds. (9) A-fib Qualifiers: Atrial fibrillation type: chronic Qualified Code(s): I48.2 - Chronic atrial fibrillation Is this a current diagnosis for this admission?: No Plan: [id number] Score 4. Rate controlled, continue beta-blockers continue Coumadin. Daily INR with a goal of 2-2.5. (10) NASIM (acute kidney injury) Is this a current diagnosis for this admission?: Yes Plan: Prerenal. Likely due to over diuresis. Switch IV Lasix to p.o. 20 mg twice daily. Labs: WBC 4.9, Hgb 11.6, platelet 149, sodium 142, potassium 4.0, chloride 9 5, BUN 28, creatinine 1.34, fasting blood glucose 78 Weight: 131.8 kg down by about 4 kg since admission. Of note patient takes 40 mg of Lasix daily at home however as per sister patient is not compliant with her medications.
[2018-07-29] MEDS: OXYCODONE-ACETAMINOPHEN 5-325 MG TABLET PO PRN (13:49)
[2018-07-29] MEDS: VENLAFAXINE HCL 75 MG TABLET PO SCH (21:33)
[2018-07-29] MEDS: ALPRAZOLAM 0.5 MG TABLET PO SCH (21:33)
[2018-07-29] MEDS: LEVOFLOXACIN 750 MG/D5W RTU 750 MG/150 ML RTUPB IV SCH (21:34)
[2018-07-29] MEDS ORDERED: WARFARIN SODIUM 4 MG TABLET PO SCH (22:00)
[2018-07-29] MEDS ORDERED: WARFARIN SODIUM 3 MG TABLET PO SCH (22:00)
[2018-07-30] MEDS: LEVALBUTEROL HCL NEB 1.25 MG/3 ML AMPUL NEB SCH ×6 (04:13→23:59)
[2018-07-30] MEDS: BUPROPION HCL 100 MG TABLET PO SCH ×3 (05:15→21:07)
[2018-07-30] MEDS: LANSOPRAZOLE 15 MG TAB.RAP.DR PO SCH ×2 (05:15→17:02)
[2018-07-30 05:34] LABS: INTERNATIONAL RATION (INR) 1.22
[2018-07-30 05:36] LABS: ABSOLUTE EOSINOPHILS # (AUTO) 0.1 10^3/uL (0.0-0.6); ABSOLUTE LYMPHOCYTES (AUTO) 1.3 10^3/uL (0.5-4.7); ABSOLUTE MONOCYTES (AUTO) 0.5 10^3/uL (0.1-1.4); ABSOLUTE NEUT (AUTO) 2.4 10^3/uL (1.7-8.2); BASOPHILS % (AUTO) 0.8 % (0-2); EOSINOPHILS % (AUTO) 1.2 % (0-6); HEMATOCRIT 35.5 % (36.0-47.0); HEMOGLOBIN 11.5 g/dL (12.0-15.5); LYMPHOCYTES % (AUTO) 30.9 % (13-45); MEAN CORPUSCULAR HEMOGLOBIN 27.2 pg (27.0-33.4); MEAN CORPUSCULAR HGB CONC 32.4 g/dL (32.0-36.0); MEAN CORPUSCULAR VOLUME 84 fl (80-97); MONOCYTES % (AUTO) 11.9 % (3-13); PLATELET COUNT 149 10^3/uL (150-450); RED BLOOD COUNT 4.24 10^6/uL (3.72-5.28); RED CELL DISTRIBUTION WIDTH 18.4 % (11.5-14.0); SEGMENTED NEUTROPHILS % (AUTO) 55.2 % (42-78); TOTAL CELLS COUNTED % (AUTO) 100 %; WHITE BLOOD COUNT 4.3 10^3/uL (4.0-10.5)
[2018-07-30 06:04] LABS: ALANINE AMINOTRANSFERASE 41 U/L (9-52); ALBUMIN 3.9 g/dL (3.5-5.0); ALKALINE PHOSPHATASE 88 U/L (38-126); ANION GAP 15 (5-19); ASPARTATE AMINO TRANSFERASE 25 U/L (14-36); BILIRUBIN,DIRECT 1.4 mg/dL (0.0-0.4); BILIRUBIN,TOTAL 1.8 mg/dL (0.2-1.3); BLOOD UREA NITROGEN 24 mg/dL (7-20); CALCIUM 8.8 mg/dL (8.4-10.2); CARBON DIOXIDE 31 mmol/L (22-30); CHLORIDE 96 mmol/L (98-107); GLUCOSE 101 mg/dL (75-110); TOTAL PROTEIN 6.9 g/dL (6.3-8.2)
[2018-07-30] MEDS: PROMETHAZINE HCL 25 MG TABLET PO PRN (08:28)
[2018-07-30] MEDS: ASPIRIN 81 MG TABLET, CHEWABLE PO SCH (09:47)
[2018-07-30] MEDS: DOCUSATE SODIUM 100 MG CAPSULE PO SCH ×3 (09:47→17:02)
[2018-07-30] MEDS: GUAIFENESIN SYRP 200 MG/10 ML UDC PO SCH ×4 (09:48→21:07)
[2018-07-30] MEDS: METOPROLOL TARTRATE 50 MG TABLET PO SCH ×2 (09:48→21:07)
[2018-07-30] MEDS: FUROSEMIDE 20 MG TABLET PO SCH ×2 (09:48→17:02)
[2018-07-30] MEDS: GABAPENTIN 300 MG CAPSULE PO SCH (09:48)
--- NOTE | 2018-07-30 13:52 | PDOC PROGRESS REPORT ---
Subjective Progress Note for:: 07/30/18 Subjective:: 07/27/2018. No acute events overnight. Patient is stating that she could not get a good night sleep because of having shortness of breath and anxiety. She was not able to tolerate BiPAP. On my encounter patient just woke up receiving her neb treatments she does not seem to be in any distress and she is saying compared to yesterday she is feeling better, she has been p.o. tolerant and she is having normal bowel and bladder functions. She denies any fever, chest pain , nausea, vomiting, diarrhea, constipation or any urinary symptoms. She stating that her mechanical aortic valve is bioprosthetic but he is she does not remember what type of stent she has. We will attempt to get medical records. Blood pressure has been within normal limits, she has been afebrile, pulse rate of 52-116, FiO2 of 20-32%, saturating in the 90s. CBC CMP within normal limits , INR today is 1.27, ABG she has a carbon dioxide of 57 and PO2 of 79%, room air , CMP looks within normal limits with a BUN of 21 and creatinine of 1.24, A1c is 5.9,. Plan is to continue strict in and out, empiric antibiotics, IV steroids, nebs, BiPAP. We will get a new echo and also attempt to get her medical records. 07/28/2018. No acute events overnight. 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 She used BiPAP overnight and she tolerated well. Yesterday she was able to walk around the halls without any significant dyspnea on exertion. She is denying any fever , chest pain, chills, nausea, vomiting, diarrhea or any urinary symptoms. 07/29/2018. No acute events overnight. Patient was not able to tolerate her BiPAP however she says she had a good night sleep. On my encounter patient is resting comfortably in her bed in no apparent distress on 3 L of nasal cannula. She is p.o. tolerant and she was able to walk in the hallways with oxygen. She has not had a bowel movement for the last 2 days otherwise she is denying any fever, chills, nausea, vomiting, diarrhea or any constipation. She also wants to be restarted on Xanax that she takes at home nightly. 07/30/2018-and is still complaining of shortness of breath saying she needs oxygen via nasal cannula on a continuous basis. Other than that she is doing okay. Is not using the BiPAP at night because she is unable to tolerate it. Patient denies any fevers chills nausea vomiting diarrhea. Reason For Visit: CHF,COPD EXACERBATION Physical Exam Vital Signs: Temp Pulse Resp BP Pulse Ox 98.3 F 90 18 131/91 H 94 07/30/18 12:00 07/30/18 12:25 07/30/18 12:25 07/30/18 12:00 07/30/18 12:25 Intake & Output 07/29/18 07/30/18 07/31/18 06:59 06:59 06:59 Intake Total 696 2021 Output Total 300 Balance 396 2021 Weight 131.8 kg 131.6 kg General appearance: PRESENT: no acute distress Head exam: PRESENT: atraumatic Eye exam: PRESENT: PERRLA Mouth exam: PRESENT: moist Neck exam: ABSENT: carotid bruit, JVD, lymphadenopathy, thyromegaly Respiratory exam: PRESENT: decreased breath sounds, unlabored Cardiovascular exam: PRESENT: tachycardia Pulses: PRESENT: normal dorsalis pedis pul GI/Abdominal exam: PRESENT: normal bowel sounds, soft. ABSENT: distended, guarding, mass, organolmegaly, rebound, tenderness Rectal exam: PRESENT: deferred Neurological exam: PRESENT: alert, awake, oriented to person, oriented to place , oriented to time, oriented to situation, CN II-XII grossly intact. ABSENT: motor sensory deficit Psychiatric exam: PRESENT: appropriate affect, normal mood. ABSENT: homicidal ideation, suicidal ideation Results Laboratory Results: 07/30/18 04:08 07/30/18 04:08 07/30/18 07/30/18 04:08 04:08 WBC 4.3 RBC 4.24 Hgb 11.5 L Hct 35.5 L MCV 84 MCH 27.2 MCHC 32.4 RDW 18.4 H Plt Count 149 L Seg Neutrophils % 55.2 Lymphocytes % 30.9 Monocytes % 11.9 Eosinophils % 1.2 Basophils % 0.8 Absolute Neutrophils 2.4 Absolute Lymphocytes 1.3 Absolute Monocytes 0.5 Absolute Eosinophils 0.1 Absolute Basophils 0.0 Sodium 142.0 Potassium 4.0 Chloride 96 L Carbon Dioxide 31 H Anion Gap 15 BUN 24 H Creatinine 1.09 Est GFR ( Amer) > 60 Est GFR (Non-Af Amer) 50 L Glucose 101 Calcium 8.8 Total Bilirubin 1.8 H AST 25 ALT 41 Alkaline Phosphatase 88 Total Protein 6.9 Albumin 3.9 07/27/18 22:15 Sputum Gram Stain - Final 07/27/18 22:15 Sputum Sputum Culture - Final NORMAL LAURA Impressions: Chest X-Ray 07/26/18 10:45 IMPRESSION: Cardiomegaly. No failure. No consolidation Chest/Abdomen CTA 07/26/18 13:22 IMPRESSION: No CT angio evidence of acute pulmonary emboli. Minimal bibasilar airspace disease likely atelectasis Assessment & Plan - Diagnosis (1) COPD exacerbation Is this a current diagnosis for this admission?: Yes Plan: (1) COPD exacerbation Is this a current diagnosis for this admission?: Yes Plan: Nebs, empiric antibiotics, BiPAP . Switch steroids to p.o. 07/29/2018 RR 18-20, pulse 69-93, SPO2 100% on 2 L FiO2 32%. 07/28/2018. RR 14-24, SPO2 98 - 100 3 L FiO2 of 32% 07/27/2018. RR 16-20, SPO2 94 3 L FiO2 of 32%. 07/26/2018 CTA negative for any embolus. On 2 L of home oxygen. Plan is to wean her off to 2 L of possible and discharged home tomorrow. 07/30/2018-patient is on 2 L nasal cannula pulse ox is 96-98%. Patient is still complaining of shortness of breath even at rest. During the hospital stay initially she is on BiPAP now she says she is unable to tolerate the BiPAP at night. The of the chest was negative for PE. On 2 L home oxygen. States she is not feeling well to go home today. (2) Stasis dermatitis of both legs Is this a current diagnosis for this admission?: Yes Plan: Improved. Will start on diuretics, leg elevation, strict in and out, cardiac diet. 07/30/2018-with diuretics leg elevation and cardiac diet status dermatitis source improvement. (3) CHF (congestive heart failure) Is this a current diagnosis for this admission?: Yes Plan: Diastolic. SBP 103-126, temperature 98.5, pulse 69-93, SPO2 100% on 2 L FiO2 32%. Weight: 131.8 kg down by about 4 kg since admission. Strict in and out, volume restriction, cardiac diet, diuretics. 07/27/2018. 2D echo shows LV ejection fraction within normal limits. RVSP 30- 40 mmHg. 07/30/2018-patient is not in fluid overload today during the examination. Left ventricular ejection fraction within normal limits. Today's weight is 131.6 kg. (4) CAD (coronary artery disease) Is this a current diagnosis for this admission?: Yes Plan: Status post PCI to his stents. Patient is not on antiplatelets. Records unavailable. Continue statins, antiplatelets, beta blockers, TAMMY. Get the records. 07/30/2018-patient has history of coronary artery disease status post PCI with stents. She is on warfarin 7 million p.o. nightly, aspirin 81 mg p.o. daily, Lasix 20 mg p.o. twice daily, ALT 50 mg p.o. every 12 hours. INR is still subtherapeutic 1.22. To increase the Coumadin to 10 mg p.o. daily. (5) Hx of aortic valve replacement Is this a current diagnosis for this admission?: Yes Plan: Replaced and September 2017. Bioprosthetic as per patient. Patient is INR subtherapeutic. Will start warfarin with a goal of INR 2.5-3.5 She was scheduled to get 7 mg Coumadin yesterday but for some reason she only received 4 Called pharmacy to make sure that she gets 7 mg today. INR tomorrow. Adjust warfarin daily with a goal of INR of 2.3 - 3.5. 07/30/2018-patient has history of aortic valve replacement with bioprosthesis. Patient is on Coumadin 7 mg p.o. nightly. It is 1.2 to today. To Coumadin to 10 mg p.o. nightly we will check her INR tomorrow. (6) Hypertension Is this a current diagnosis for this admission?: Yes Plan: 07/30/2018-the blood pressure today is 116/85. Stable. (7) A-fib Qualifiers: Atrial fibrillation type: chronic Qualified Code(s): I48.2 - Chronic atrial fibrillation Is this a current diagnosis for this admission?: No Plan: [id number] Score 4. Rate controlled, continue beta-blockers continue Coumadin. Daily INR with a goal of 2-2.5. 07/30/2018 pulse rate today's 90. Patient is on beta-blockers and Coumadin. I increased the Coumadin to 10 mg p.o. nightly. Will check PT/INR tomorrow. (8) NASIM (acute kidney injury) Is this a current diagnosis for this admission?: Yes Plan: Prerenal. Likely due to over diuresis. Switch IV Lasix to p.o. 20 mg twice daily. Labs: WBC 4.9, Hgb 11.6, platelet 149, sodium 142, potassium 4.0, chloride 9 5, BUN 28, creatinine 1.34, fasting blood glucose 78 Weight: 131.8 kg down by about 4 kg since admission. Of note patient takes 40 mg of Lasix daily at home however as per sister patient is not compliant with her medications. 06/2018-creatinine today is 1.09. Acute kidney injury is resolving. Patient is on Lasix 20 mg p.o. twice daily. - Time Time Spent with patient: 15-24 minutes Smoking Cessation Education: 3 to 10 minutes Anticipated discharge: Home
[2018-07-30 15:44] LABS: INTERNATIONAL RATION (INR) 1.32
[2018-07-30] MEDS: INSULIN LISPRO 100 UNIT/ML 3 ML VIAL SUBCUT SCH (16:57)
[2018-07-30] MEDS: LEVOFLOXACIN 750 MG TABLET PO SCH (17:02)
[2018-07-30] MEDS: OXYCODONE-ACETAMINOPHEN 5-325 MG TABLET PO PRN ×2 (17:02→23:52)
[2018-07-30] MEDS: ALBUTEROL SULFATE 0.083% NEB 2.5 MG/3 ML AMPUL NEB SCH (17:46)
[2018-07-30] MEDS ORDERED: (PENDING PHARMACY ID) (Potassium Chloride [Klor-Con M10] 10 MEQ) PO SCH (18:00)
[2018-07-30] MEDS: WARFARIN SODIUM 5 MG TABLET PO SCH (21:07)
[2018-07-30] MEDS: ALPRAZOLAM 0.5 MG TABLET PO SCH (21:08)
[2018-07-30] MEDS: VENLAFAXINE HCL 75 MG TABLET PO SCH (21:08)
[2018-07-30] MEDS: MELATONIN 5 MG TABLET PO PRN (21:41)
[2018-07-31] MEDS: LEVALBUTEROL HCL NEB 1.25 MG/3 ML AMPUL NEB SCH ×4 (03:55→19:54)
[2018-07-31] MEDS: LANSOPRAZOLE 15 MG TAB.RAP.DR PO SCH ×2 (05:12→16:33)
[2018-07-31] MEDS: BUPROPION HCL 100 MG TABLET PO SCH ×3 (05:12→21:12)
[2018-07-31] MEDS ORDERED: LANSOPRAZOLE 30 MG TAB.RAP.DR PO SCH (06:00)
[2018-07-31 07:17] LABS: APPEARANCE,URINE SLIGHTLY-CLOUDY; BILIRUBIN,URINE NEGATIVE (NEGATIVE); COLOR,URINE YELLOW; GLUCOSE, URINE NEGATIVE (NEGATIVE); KETONES,URINE NEGATIVE (NEGATIVE); LEUKOCYTE ESTERASE,URINE NEGATIVE (NEGATIVE); NITRITE,URINE NEGATIVE (NEGATIVE); PROTEIN,URINE 100 mg/dL (NEGATIVE); URINE SPECIFIC GRAVITY 1.019
[2018-07-31] MEDS: ALBUTEROL SULFATE 0.083% NEB 2.5 MG/3 ML AMPUL NEB SCH ×2 (08:00)
[2018-07-31] MEDS: INSULIN LISPRO 100 UNIT/ML 3 ML VIAL SUBCUT SCH ×3 (08:43→16:13)
[2018-07-31] MEDS ORDERED: POTASSIUM CHLORIDE 10 MEQ CAPSULE.ER PO ONE (08:45)
[2018-07-31] MEDS: ASPIRIN 81 MG TABLET, CHEWABLE PO SCH (08:53)
[2018-07-31] MEDS: METOPROLOL TARTRATE 50 MG TABLET PO SCH ×2 (08:53→21:11)
[2018-07-31] MEDS: DOCUSATE SODIUM 100 MG CAPSULE PO SCH ×2 (08:53→16:33)
[2018-07-31] MEDS: GABAPENTIN 300 MG CAPSULE PO SCH (08:53)
[2018-07-31] MEDS: FUROSEMIDE 20 MG TABLET PO SCH ×2 (08:53→16:33)
[2018-07-31] MEDS: POTASSIUM CHLORIDE 10 MEQ CAPSULE.ER PO SCH (09:02)
[2018-07-31] MEDS: GUAIFENESIN SYRP 200 MG/10 ML UDC PO SCH ×4 (09:03→21:12)
[2018-07-31] MEDS: TIOTROPIUM BROMIDE DPI 5 CAP/KIT (18 MCG/CAP) IH SCH (09:03)
[2018-07-31] MEDS ORDERED: (PENDING PHARMACY ID) (Fluticasone/Vilanterol [Breo Ellipta 100-25 Mcg Inh] 1 PUFF) IH SCH (10:00)
[2018-07-31] MEDS: OXYCODONE-ACETAMINOPHEN 5-325 MG TABLET PO PRN ×2 (10:12→16:33)
[2018-07-31] MEDS ORDERED: ALBUTEROL SULFATE 0.083% NEB 2.5 MG/3 ML AMPUL NEB PRN (11:30)
--- NOTE | 2018-07-31 16:10 | PDOC PROGRESS REPORT ---
Subjective Progress Note for:: 07/31/18 Subjective:: 07/27/2018. No acute events overnight. Patient is stating that she could not get a good night sleep because of having shortness of breath and anxiety. She was not able to tolerate BiPAP. On my encounter patient just woke up receiving her neb treatments she does not seem to be in any distress and she is saying compared to yesterday she is feeling better, she has been p.o. tolerant and she is having normal bowel and bladder functions. She denies any fever, chest pain , nausea, vomiting, diarrhea, constipation or any urinary symptoms. She stating that her mechanical aortic valve is bioprosthetic but he is she does not remember what type of stent she has. We will attempt to get medical records. Blood pressure has been within normal limits, she has been afebrile, pulse rate of 52-116, FiO2 of 20-32%, saturating in the 90s. CBC CMP within normal limits , INR today is 1.27, ABG she has a carbon dioxide of 57 and PO2 of 79%, room air , CMP looks within normal limits with a BUN of 21 and creatinine of 1.24, A1c is 5.9,. Plan is to continue strict in and out, empiric antibiotics, IV steroids, nebs, BiPAP. We will get a new echo and also attempt to get her medical records. 07/28/2018. No acute events overnight. 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 She used BiPAP overnight and she tolerated well. Yesterday she was able to walk around the halls without any significant dyspnea on exertion. She is denying any fever , chest pain, chills, nausea, vomiting, diarrhea or any urinary symptoms. 07/29/2018. No acute events overnight. Patient was not able to tolerate her BiPAP however she says she had a good night sleep. On my encounter patient is resting comfortably in her bed in no apparent distress on 3 L of nasal cannula. She is p.o. tolerant and she was able to walk in the hallways with oxygen. She has not had a bowel movement for the last 2 days otherwise she is denying any fever, chills, nausea, vomiting, diarrhea or any constipation. She also wants to be restarted on Xanax that she takes at home nightly. 07/30/2018-and is still complaining of shortness of breath saying she needs oxygen via nasal cannula on a continuous basis. Other than that she is doing okay. Is not using the BiPAP at night because she is unable to tolerate it. Patient denies any fevers chills nausea vomiting diarrhea. 07/31/2018-patient still in mild shortness of breath on oxygen via nasal cannula. Socks on 2 L is 97%. Afebrile. No acute events in the last 24 hours. Reason For Visit: CHF,COPD EXACERBATION Physical Exam Vital Signs: Temp Pulse Resp BP Pulse Ox 97.6 F 95 18 137/99 H 97 07/31/18 12:00 07/31/18 14:22 07/31/18 14:22 07/31/18 12:00 07/31/18 12:00 Intake & Output 07/30/18 07/31/18 08/01/18 06:59 06:59 06:59 Intake Total 2021 620 Balance 2021 620 Weight 131.6 kg 131.4 kg General appearance: PRESENT: mild distress Head exam: PRESENT: atraumatic Eye exam: PRESENT: PERRLA Mouth exam: PRESENT: moist Neck exam: ABSENT: carotid bruit, JVD, lymphadenopathy, thyromegaly Respiratory exam: PRESENT: decreased breath sounds, tachypnea Cardiovascular exam: PRESENT: tachycardia GI/Abdominal exam: PRESENT: normal bowel sounds, soft. ABSENT: distended, guarding, mass, organolmegaly, rebound, tenderness Neurological exam: PRESENT: alert, awake, oriented to person, oriented to place , oriented to time, oriented to situation, CN II-XII grossly intact. ABSENT: motor sensory deficit Psychiatric exam: PRESENT: appropriate affect, normal mood. ABSENT: homicidal ideation, suicidal ideation Results Laboratory Results: 07/30/18 04:08 07/30/18 04:08 07/31/18 06:47 Urine Color YELLOW Urine Appearance SLIGHTLY-CLOUDY Urine pH 5.0 Ur Specific Dell 1.019 Urine Protein 100 H Urine Glucose (UA) NEGATIVE Urine Ketones NEGATIVE Urine Blood NEGATIVE Urine Nitrite NEGATIVE Ur Leukocyte Esterase NEGATIVE Urine WBC (Auto) 2 Urine RBC (Auto) 0 Impressions: Chest X-Ray 07/26/18 10:45 IMPRESSION: Cardiomegaly. No failure. No consolidation Chest/Abdomen CTA 07/26/18 13:22 IMPRESSION: No CT angio evidence of acute pulmonary emboli. Minimal bibasilar airspace disease likely atelectasis Assessment & Plan - Diagnosis (1) COPD exacerbation Is this a current diagnosis for this admission?: Yes Plan: (1) COPD exacerbation Is this a current diagnosis for this admission?: Yes Plan: Nebs, empiric antibiotics, BiPAP . Switch steroids to p.o. 07/29/2018 RR 18-20, pulse 69-93, SPO2 100% on 2 L FiO2 32%. 07/28/2018. RR 14-24, SPO2 98 - 100 3 L FiO2 of 32% 07/27/2018. RR 16-20, SPO2 94 3 L FiO2 of 32%. 07/26/2018 CTA negative for any embolus. On 2 L of home oxygen. Plan is to wean her off to 2 L of possible and discharged home tomorrow. 07/30/2018-patient is on 2 L nasal cannula pulse ox is 96-98%. Patient is still complaining of shortness of breath even at rest. During the hospital stay initially she is on BiPAP now she says she is unable to tolerate the BiPAP at night. The of the chest was negative for PE. On 2 L home oxygen. States she is not feeling well to go home today. 07/31/2018 patient is in mild shortness of breath on 2 L nasal cannula oxygen pulse ox is 94-96%. She is still complaining of shortness of breath with minimal activity. Patient says she is unable to tolerate BiPAP at night. Continue the nebulizer treatments. Patient is on albuterol nebulizations every 6 as needed and Xopenex nebulizations every 6 scheduled. Sputum cultures and blood cultures are negative. She is on levofloxacin 750 mg p.o. daily. Planning to discharge tomorrow may be with 2 L oxygen. (2) Stasis dermatitis of both legs Is this a current diagnosis for this admission?: Yes Plan: Improved. Will start on diuretics, leg elevation, strict in and out, cardiac diet. 07/30/2018-with diuretics leg elevation and cardiac diet status dermatitis source improvement. 07/31/2018-plan is to continue the present management. (3) CHF (congestive heart failure) Is this a current diagnosis for this admission?: Yes Plan: Diastolic. SBP 103-126, temperature 98.5, pulse 69-93, SPO2 100% on 2 L FiO2 32%. Weight: 131.8 kg down by about 4 kg since admission. Strict in and out, volume restriction, cardiac diet, diuretics. 07/27/2018. 2D echo shows LV ejection fraction within normal limits. RVSP 30- 40 mmHg. 07/30/2018-patient is not in fluid overload today during the examination. Left ventricular ejection fraction within normal limits. Today's weight is 131.6 kg. 07/31/2018 patient is not in fluid overload. Chest was clear. No pedal edema. Left ventricular ejection fraction within normal. Weight is 131.4 cages today. She lost more than 5 kg. Left ventricular diastolic function was not properly assessed because of atrial fibrillation. (4) CAD (coronary artery disease) Is this a current diagnosis for this admission?: Yes Plan: Status post PCI to his stents. Patient is not on antiplatelets. Records unavailable. Continue statins, antiplatelets, beta blockers, TAMMY. Get the records. 07/30/2018-patient has history of coronary artery disease status post PCI with stents. She is on warfarin 7 million p.o. nightly, aspirin 81 mg p.o. daily, Lasix 20 mg p.o. twice daily, ALT 50 mg p.o. every 12 hours. INR is still subtherapeutic 1.22. To increase the Coumadin to 10 mg p.o. daily. 07/31/2018-patient has history of coronary artery disease and atrial fibrillation. INR is 1.32. Patient is on Coumadin 10 mg p.o. nightly. We are going to check PT/INR tomorrow. (5) Hx of aortic valve replacement Is this a current diagnosis for this admission?: Yes Plan: and September 2017. Bioprosthetic as per patient. Patient is INR subtherapeutic. Will start warfarin with a goal of INR 2.5-3.5 She was scheduled to get 7 mg Coumadin yesterday but for some reason she only received 4 Called pharmacy to make sure that she gets 7 mg today. INR tomorrow. Adjust warfarin daily with a goal of INR of 2.3 - 3.5. 07/30/2018-patient has history of aortic valve replacement with bioprosthesis. Patient is on Coumadin 7 mg p.o. nightly. It is 1.2 to today. To Coumadin to 10 mg p.o. nightly we will check her INR tomorrow. 07/31/2018 patient has history of aortic valve replacement with bioprosthesis. Coumadin 10 mg p.o. nightly. INR is 1.3 to subtherapeutic. Will check PT/INR tomorrow. (6) Hypertension Is this a current diagnosis for this admission?: Yes Plan: 07/30/2018-the blood pressure today is 116/85. Stable. 07/31/2018-patient's blood pressure is 121/67. Stable. Patient is on metoprolol 50 mg p.o. twice daily. (7) A-fib Qualifiers: Atrial fibrillation type: chronic Qualified Code(s): I48.2 - Chronic atrial fibrillation Is this a current diagnosis for this admission?: No Plan: [id number] Score 4. Rate controlled, continue beta-blockers continue Coumadin. Daily INR with a goal of 2-2.5. 07/30/2018 pulse rate today's 90. Patient is on beta-blockers and Coumadin. I increased the Coumadin to 10 mg p.o. nightly. Will check PT/INR tomorrow. 07/31/2018-patient's pulse rate is 95 today. Still in A. fib with rate controlled. (8) NASIM (acute kidney injury) Is this a current diagnosis for this admission?: Yes Plan: Prerenal. Likely due to over diuresis. Switch IV Lasix to p.o. 20 mg twice daily. Labs: WBC 4.9, Hgb 11.6, platelet 149, sodium 142, potassium 4.0, chloride 9 5, BUN 28, creatinine 1.34, fasting blood glucose 78 Weight: 131.8 kg down by about 4 kg since admission. Of note patient takes 40 mg of Lasix daily at home however as per sister patient is not compliant with her medications. 06/2018-creatinine today is 1.09. Acute kidney injury is resolving. Patient is on Lasix 20 mg p.o. twice daily. 07/31/2018-patient INR is 1.09. Acute kidney injury resolved. - Time Time Spent with patient: 15-24 minutes Medications reviewed and adjusted accordingly: Yes Anticipated discharge: Home
[2018-07-31] MEDS: LEVOFLOXACIN 750 MG TABLET PO SCH (16:35)
[2018-07-31 17:48] LABS: INTERNATIONAL RATION (INR) 1.49; PROTHROMBIN TIME 18.7 SEC (11.4-15.4)
[2018-07-31] MEDS: NYSTATIN/DEXAMETH/DIPHEN SUSP 120 ML PO SCH ×2 (19:06→21:12)
[2018-07-31] MEDS: ALPRAZOLAM 0.5 MG TABLET PO SCH (19:06)
[2018-07-31] MEDS: VENLAFAXINE HCL 75 MG TABLET PO SCH (21:11)
[2018-07-31] MEDS: WARFARIN SODIUM 5 MG TABLET PO SCH (21:11)
[2018-08-01] MEDS: LEVALBUTEROL HCL NEB 1.25 MG/3 ML AMPUL NEB SCH ×4 (02:01→19:47)
[2018-08-01] MEDS: LANSOPRAZOLE 15 MG TAB.RAP.DR PO SCH ×2 (05:16→17:03)
[2018-08-01] MEDS: BUPROPION HCL 100 MG TABLET PO SCH ×3 (05:16→21:18)
[2018-08-01] MEDS: INSULIN LISPRO 100 UNIT/ML 3 ML VIAL SUBCUT SCH ×3 (08:50→16:38)
[2018-08-01] MEDS: DOCUSATE SODIUM 100 MG CAPSULE PO SCH ×2 (09:00→17:03)
[2018-08-01] MEDS: POTASSIUM CHLORIDE 10 MEQ CAPSULE.ER PO SCH (09:00)
[2018-08-01] MEDS: GABAPENTIN 300 MG CAPSULE PO SCH (09:01)
[2018-08-01] MEDS: FUROSEMIDE 20 MG TABLET PO SCH ×2 (09:01→17:04)
[2018-08-01] MEDS: ALPRAZOLAM 0.5 MG TABLET PO SCH ×2 (09:01→17:03)
[2018-08-01] MEDS: METOPROLOL TARTRATE 50 MG TABLET PO SCH ×2 (09:01→21:18)
[2018-08-01] MEDS: ASPIRIN 81 MG TABLET, CHEWABLE PO SCH (09:01)
[2018-08-01] MEDS: GUAIFENESIN SYRP 200 MG/10 ML UDC PO SCH ×4 (09:02→21:18)
[2018-08-01] MEDS: TIOTROPIUM BROMIDE DPI 5 CAP/KIT (18 MCG/CAP) IH SCH (09:07)
[2018-08-01] MEDS: OXYCODONE-ACETAMINOPHEN 5-325 MG TABLET PO PRN ×2 (09:08→15:29)
[2018-08-01] MEDS: NYSTATIN/DEXAMETH/DIPHEN SUSP 120 ML PO SCH ×4 (09:11→21:19)
[2018-08-01] MEDS: LEVOFLOXACIN 750 MG TABLET PO SCH (17:53)
--- NOTE | 2018-08-01 18:23 | PDOC PROGRESS REPORT ---
Subjective Progress Note for:: 08/01/18 Subjective:: 07/27/2018. No acute events overnight. Patient is stating that she could not get a good night sleep because of having shortness of breath and anxiety. She was not able to tolerate BiPAP. On my encounter patient just woke up receiving her neb treatments she does not seem to be in any distress and she is saying compared to yesterday she is feeling better, she has been p.o. tolerant and she is having normal bowel and bladder functions. She denies any fever, chest pain , nausea, vomiting, diarrhea, constipation or any urinary symptoms. She stating that her mechanical aortic valve is bioprosthetic but he is she does not remember what type of stent she has. We will attempt to get medical records. Blood pressure has been within normal limits, she has been afebrile, pulse rate of 52-116, FiO2 of 20-32%, saturating in the 90s. CBC CMP within normal limits , INR today is 1.27, ABG she has a carbon dioxide of 57 and PO2 of 79%, room air , CMP looks within normal limits with a BUN of 21 and creatinine of 1.24, A1c is 5.9,. Plan is to continue strict in and out, empiric antibiotics, IV steroids, nebs, BiPAP. We will get a new echo and also attempt to get her medical records. 07/28/2018. No acute events overnight. 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 She used BiPAP overnight and she tolerated well. Yesterday she was able to walk around the halls without any significant dyspnea on exertion. She is denying any fever , chest pain, chills, nausea, vomiting, diarrhea or any urinary symptoms. 07/29/2018. No acute events overnight. Patient was not able to tolerate her BiPAP however she says she had a good night sleep. On my encounter patient is resting comfortably in her bed in no apparent distress on 3 L of nasal cannula. She is p.o. tolerant and she was able to walk in the hallways with oxygen. She has not had a bowel movement for the last 2 days otherwise she is denying any fever, chills, nausea, vomiting, diarrhea or any constipation. She also wants to be restarted on Xanax that she takes at home nightly. 07/30/2018-and is still complaining of shortness of breath saying she needs oxygen via nasal cannula on a continuous basis. Other than that she is doing okay. Is not using the BiPAP at night because she is unable to tolerate it. Patient denies any fevers chills nausea vomiting diarrhea. 07/31/2018-patient still in mild shortness of breath on oxygen via nasal cannula. pulse ox on 2 L is 97%. Afebrile. No acute events in the last 24 hours. 08/01/2018 patient is comfortably sleeping in the bed on 2 L oxygen via nasal cannula. Not in distress. No complaints. Reason For Visit: CHF,COPD EXACERBATION Physical Exam Vital Signs: Temp Pulse Resp BP Pulse Ox 98.7 F 89 20 134/91 H 94 08/01/18 15:18 08/01/18 15:18 08/01/18 15:18 08/01/18 15:18 08/01/18 15:18 Intake & Output 07/31/18 08/01/18 08/02/18 06:59 06:59 06:59 Intake Total 620 1243 1095 Output Total 450 Balance 620 1243 645 Weight 131.4 kg 132.8 kg General appearance: PRESENT: no acute distress Head exam: PRESENT: atraumatic Eye exam: PRESENT: PERRLA Neck exam: ABSENT: carotid bruit, JVD, lymphadenopathy, thyromegaly Respiratory exam: PRESENT: decreased breath sounds, wheezes Cardiovascular exam: PRESENT: tachycardia GI/Abdominal exam: PRESENT: normal bowel sounds, soft. ABSENT: distended, guarding, mass, organolmegaly, rebound, tenderness Extremities exam: PRESENT: full ROM. ABSENT: calf tenderness, clubbing, pedal edema Neurological exam: PRESENT: alert, awake, oriented to person, oriented to place , oriented to time, oriented to situation, CN II-XII grossly intact. ABSENT: motor sensory deficit Psychiatric exam: PRESENT: appropriate affect, normal mood. ABSENT: homicidal ideation, suicidal ideation Results Laboratory Results: 07/30/18 04:08 07/30/18 04:08 07/26/18 18:10 Blood Blood Culture - Final NO GROWTH IN 5 DAYS 07/26/18 18:20 Blood Blood Culture - Final NO GROWTH IN 5 DAYS Impressions: Chest X-Ray 07/26/18 10:45 IMPRESSION: Cardiomegaly. No failure. No consolidation Chest/Abdomen CTA 07/26/18 13:22 IMPRESSION: No CT angio evidence of acute pulmonary emboli. Minimal bibasilar airspace disease likely atelectasis Assessment & Plan - Diagnosis (1) COPD exacerbation Is this a current diagnosis for this admission?: Yes Plan: (1) COPD exacerbation Is this a current diagnosis for this admission?: Yes Plan: Nebs, empiric antibiotics, BiPAP . Switch steroids to p.o. 07/29/2018 RR 18-20, pulse 69-93, SPO2 100% on 2 L FiO2 32%. 07/28/2018. RR 14-24, SPO2 98 - 100 3 L FiO2 of 32% 07/27/2018. RR 16-20, SPO2 94 3 L FiO2 of 32%. 07/26/2018 CTA negative for any embolus. On 2 L of home oxygen. Plan is to wean her off to 2 L of possible and discharged home tomorrow. 07/30/2018-patient is on 2 L nasal cannula pulse ox is 96-98%. Patient is still complaining of shortness of breath even at rest. During the hospital stay initially she is on BiPAP now she says she is unable to tolerate the BiPAP at night. The of the chest was negative for PE. On 2 L home oxygen. States she is not feeling well to go home today. 07/31/2018 patient is in mild shortness of breath on 2 L nasal cannula oxygen pulse ox is 94-96%. She is still complaining of shortness of breath with minimal activity. Patient says she is unable to tolerate BiPAP at night. Continue the nebulizer treatments. Patient is on albuterol nebulizations every 6 as needed and Xopenex nebulizations every 6 scheduled. Sputum cultures and blood cultures are negative. She is on levofloxacin 750 mg p.o. daily. Planning to discharge tomorrow may be with 2 L oxygen. 08/01/2018 patient was admitted with COPD exacerbation. She is on oxygen 2 L nasal cannula. Pulse oxes are in the 94-96%. She is using BiPAP at night. Plan is to continue albuterol nebulization Xopenex nebulizations. She is on levofloxacin 750 mg p.o. daily. Patient is waiting for placement in [facility]. (2) Stasis dermatitis of both legs Is this a current diagnosis for this admission?: Yes Plan: Improved. Will start on diuretics, leg elevation, strict in and out, cardiac diet. 07/30/2018-with diuretics leg elevation and cardiac diet status dermatitis source improvement. 07/31/2018-plan is to continue the present management. 08/01/2018 plan to continue the present management. (3) CHF (congestive heart failure) Is this a current diagnosis for this admission?: Yes Plan: Diastolic. SBP 103-126, temperature 98.5, pulse 69-93, SPO2 100% on 2 L FiO2 32%. Weight: 131.8 kg down by about 4 kg since admission. Strict in and out, volume restriction, cardiac diet, diuretics. 07/27/2018. 2D echo shows LV ejection fraction within normal limits. RVSP 30- 40 mmHg. 07/30/2018-patient is not in fluid overload today during the examination. Left ventricular ejection fraction within normal limits. Today's weight is 131.6 kg. 07/31/2018 patient is not in fluid overload. Chest was clear. No pedal edema. Left ventricular ejection fraction within normal. Weight is 131.4 kg today. She lost more than 5 kg. Left ventricular diastolic function was not properly assessed because of atrial fibrillation. 08/01/2018 on physical examination patient is not in fluid overload chest was clear no pedal edema.. The left ventricular ejection fraction is within normal limits as per the echocardiogram report. Dr. Starks is unable to evaluate the left ventricular diastolic function because of the atrial fibrillation. Chronic congestive heart failure. (4) CAD (coronary artery disease) Is this a current diagnosis for this admission?: Yes Plan: Status post PCI to his stents. Patient is not on antiplatelets. Records unavailable. Continue statins, antiplatelets, beta blockers, TAMMY. Get the records. 07/30/2018-patient has history of coronary artery disease status post PCI with stents. She is on warfarin 7 million p.o. nightly, aspirin 81 mg p.o. daily, Lasix 20 mg p.o. twice daily, ALT 50 mg p.o. every 12 hours. INR is still subtherapeutic 1.22. To increase the Coumadin to 10 mg p.o. daily. 07/31/2018-patient has history of coronary artery disease and atrial fibrillation. INR is 1.32. Patient is on Coumadin 10 mg p.o. nightly. We are going to check PT/INR tomorrow. 08/01/2018 patient has history of coronary artery disease and atrial fibrillation INR is 1.49. She is on Coumadin 10 mg p.o. nightly. We are going to check INR tomorrow. (5) Hx of aortic valve replacement Is this a current diagnosis for this admission?: Yes Plan: and September 2017. Bioprosthetic as per patient. Patient is INR subtherapeutic. Will start warfarin with a goal of INR 2.5-3.5 She was scheduled to get 7 mg Coumadin yesterday but for some reason she only received 4 Called pharmacy to make sure that she gets 7 mg today. INR tomorrow. Adjust warfarin daily with a goal of INR of 2.3 - 3.5. 07/30/2018-patient has history of aortic valve replacement with bioprosthesis. Patient is on Coumadin 7 mg p.o. nightly. It is 1.2 to today. To Coumadin to 10 mg p.o. nightly we will check her INR tomorrow. 07/31/2018 patient has history of aortic valve replacement with bioprosthesis. Coumadin 10 mg p.o. nightly. INR is 1.3 to subtherapeutic. Will check PT/INR tomorrow. 08/01/2018 patient has history of atrial valve replacement aortic valve replacement with bioprosthesis she is on Coumadin 10 mg p.o. nightly INR is 1.49 go to check PT/INR again tomorrow. (6) Hypertension Is this a current diagnosis for this admission?: Yes Plan: 07/30/2018-the blood pressure today is 116/85. Stable. 07/31/2018-patient's blood pressure is 121/67. Stable. Patient is on metoprolol 50 mg p.o. twice daily. 08/01/2018 patient's blood pressure today is 126/76. Pulse rate is 88. Blood pressure is relatively stable. (7) A-fib Qualifiers: Atrial fibrillation type: chronic Qualified Code(s): I48.2 - Chronic atrial fibrillation Is this a current diagnosis for this admission?: No (8) NASIM (acute kidney injury) Is this a current diagnosis for this admission?: Yes Plan: Prerenal. Likely due to over diuresis. Switch IV Lasix to p.o. 20 mg twice daily. Labs: WBC 4.9, Hgb 11.6, platelet 149, sodium 142, potassium 4.0, chloride 9 5, BUN 28, creatinine 1.34, fasting blood glucose 78 Weight: 131.8 kg down by about 4 kg since admission. Of note patient takes 40 mg of Lasix daily at home however as per sister patient is not compliant with her medications. 06/2018-creatinine today is 1.09. Acute kidney injury is resolving. Patient is on Lasix 20 mg p.o. twice daily. 07/31/2018-patient INR is 1.09. Acute kidney injury resolved. 08/01/2018-AK resolved. - Time Time Spent with patient: 15-24 minutes Medications reviewed and adjusted accordingly: Yes Anticipated discharge: SNF
[2018-08-01] MEDS: VENLAFAXINE HCL 75 MG TABLET PO SCH (21:18)
[2018-08-01] MEDS: WARFARIN SODIUM 5 MG TABLET PO SCH (21:18)
[2018-08-01] MEDS: MELATONIN 5 MG TABLET PO PRN (22:24)
[2018-08-02] MEDS: OXYCODONE-ACETAMINOPHEN 5-325 MG TABLET PO PRN ×2 (01:41→10:15)
[2018-08-02] MEDS: LEVALBUTEROL HCL NEB 1.25 MG/3 ML AMPUL NEB SCH ×4 (02:18→19:58)
[2018-08-02 04:47] LABS: HEMATOCRIT 33.4 % (36.0-47.0); HEMOGLOBIN 10.9 g/dL (12.0-15.5); MEAN CORPUSCULAR HGB CONC 32.6 g/dL (32.0-36.0); MEAN CORPUSCULAR VOLUME 83 fl (80-97); PLATELET COUNT 120 10^3/uL (150-450); RED BLOOD COUNT 4.04 10^6/uL (3.72-5.28); RED CELL DISTRIBUTION WIDTH 18.8 % (11.5-14.0); WHITE BLOOD COUNT 5.4 10^3/uL (4.0-10.5)
[2018-08-02 05:02] LABS: INTERNATIONAL RATION (INR) 2.23; PROTHROMBIN TIME 25.8 SEC (11.4-15.4)
[2018-08-02 05:05] LABS: ALANINE AMINOTRANSFERASE 29 U/L (9-52); ALBUMIN 3.6 g/dL (3.5-5.0); ALKALINE PHOSPHATASE 79 U/L (38-126); ANION GAP 11 (5-19); ASPARTATE AMINO TRANSFERASE 21 U/L (14-36); BILIRUBIN,DIRECT 1.1 mg/dL (0.0-0.4); BILIRUBIN,TOTAL 1.6 mg/dL (0.2-1.3); BLOOD UREA NITROGEN 15 mg/dL (7-20); CARBON DIOXIDE 34 mmol/L (22-30); CHLORIDE 98 mmol/L (98-107); GLUCOSE 89 mg/dL (75-110); POTASSIUM 4.3 mmol/L (3.6-5.0); SODIUM 143.2 mmol/L (137-145); TOTAL PROTEIN 6.6 g/dL (6.3-8.2)
[2018-08-02] MEDS: BUPROPION HCL 100 MG TABLET PO SCH ×3 (05:11→21:30)
[2018-08-02] MEDS: LANSOPRAZOLE 15 MG TAB.RAP.DR PO SCH ×2 (05:11→17:06)
[2018-08-02] MEDS: INSULIN LISPRO 100 UNIT/ML 3 ML VIAL SUBCUT SCH ×3 (07:45→17:00)
[2018-08-02] MEDS: TIOTROPIUM BROMIDE DPI 5 CAP/KIT (18 MCG/CAP) IH SCH (10:15)
[2018-08-02] MEDS: NYSTATIN/DEXAMETH/DIPHEN SUSP 120 ML PO SCH ×4 (10:15→21:30)
[2018-08-02] MEDS: GABAPENTIN 300 MG CAPSULE PO SCH (10:16)
[2018-08-02] MEDS: DOCUSATE SODIUM 100 MG CAPSULE PO SCH ×2 (10:16→17:06)
[2018-08-02] MEDS: ASPIRIN 81 MG TABLET, CHEWABLE PO SCH (10:16)
[2018-08-02] MEDS: POTASSIUM CHLORIDE 10 MEQ CAPSULE.ER PO SCH (10:16)
[2018-08-02] MEDS: GUAIFENESIN SYRP 200 MG/10 ML UDC PO SCH ×4 (10:16→21:30)
[2018-08-02] MEDS: METOPROLOL TARTRATE 50 MG TABLET PO SCH ×2 (10:17→21:29)
[2018-08-02] MEDS: FUROSEMIDE 20 MG TABLET PO SCH ×2 (10:17→17:06)
[2018-08-02] MEDS: ALPRAZOLAM 0.5 MG TABLET PO SCH ×2 (10:17→17:06)
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
[2018-08-02] MEDS: LEVOFLOXACIN 750 MG TABLET PO SCH (17:07)
[2018-08-02] MEDS: WARFARIN SODIUM 5 MG TABLET PO SCH (21:29)
[2018-08-02] MEDS: VENLAFAXINE HCL 75 MG TABLET PO SCH (21:29)
[2018-08-03] MEDS: LEVALBUTEROL HCL NEB 1.25 MG/3 ML AMPUL NEB SCH ×4 (02:42→21:14)
[2018-08-03] MEDS: BUPROPION HCL 100 MG TABLET PO SCH ×3 (05:39→22:22)
[2018-08-03] MEDS: LANSOPRAZOLE 15 MG TAB.RAP.DR PO SCH ×2 (05:39→17:32)
[2018-08-03] MEDS ORDERED: ALPRAZOLAM 0.5 MG TABLET PO PRN (06:02)
[2018-08-03 08:41] LABS: APPEARANCE,URINE CLEAR; BILIRUBIN,URINE NEGATIVE (NEGATIVE); COLOR,URINE YELLOW; GLUCOSE, URINE NEGATIVE (NEGATIVE); KETONES,URINE NEGATIVE (NEGATIVE); LEUKOCYTE ESTERASE,URINE NEGATIVE (NEGATIVE); NITRITE,URINE NEGATIVE (NEGATIVE); PROTEIN,URINE 30 mg/dL (NEGATIVE); URINE SPECIFIC GRAVITY 1.016
[2018-08-03] MEDS: INSULIN LISPRO 100 UNIT/ML 3 ML VIAL SUBCUT SCH ×3 (08:54→17:36)
[2018-08-03] MEDS: GUAIFENESIN SYRP 200 MG/10 ML UDC PO PRN ×2 (09:03→23:40)
[2018-08-03] MEDS: ACETAMINOPHEN 325 MG TABLET PO PRN (09:03)
[2018-08-03] MEDS: GABAPENTIN 300 MG CAPSULE PO SCH (10:47)
[2018-08-03] MEDS: DOCUSATE SODIUM 100 MG CAPSULE PO SCH ×2 (10:47→17:32)
[2018-08-03] MEDS: ASPIRIN 81 MG TABLET, CHEWABLE PO SCH (10:47)
[2018-08-03] MEDS: NYSTATIN/DEXAMETH/DIPHEN SUSP 120 ML PO SCH ×4 (10:48→22:25)
[2018-08-03] MEDS: METOPROLOL TARTRATE 50 MG TABLET PO SCH ×2 (10:48→22:22)
[2018-08-03] MEDS: POTASSIUM CHLORIDE 10 MEQ CAPSULE.ER PO SCH (10:48)
[2018-08-03] MEDS: FUROSEMIDE 20 MG TABLET PO SCH ×2 (10:48→17:32)
[2018-08-03] MEDS: TIOTROPIUM BROMIDE DPI 5 CAP/KIT (18 MCG/CAP) IH SCH (10:49)
--- NOTE | 2018-08-03 13:43 | PDOC PROGRESS REPORT ---
Subjective Progress Note for:: 08/03/18 Subjective:: 07/27/2018. No acute events overnight. Patient is stating that she could not get a good night sleep because of having shortness of breath and anxiety. She was not able to tolerate BiPAP. On my encounter patient just woke up receiving her neb treatments she does not seem to be in any distress and she is saying compared to yesterday she is feeling better, she has been p.o. tolerant and she is having normal bowel and bladder functions. She denies any fever, chest pain , nausea, vomiting, diarrhea, constipation or any urinary symptoms. She stating that her mechanical aortic valve is bioprosthetic but he is she does not remember what type of stent she has. We will attempt to get medical records. Blood pressure has been within normal limits, she has been afebrile, pulse rate of 52-116, FiO2 of 20-32%, saturating in the 90s. CBC CMP within normal limits , INR today is 1.27, ABG she has a carbon dioxide of 57 and PO2 of 79%, room air , CMP looks within normal limits with a BUN of 21 and creatinine of 1.24, A1c is 5.9,. Plan is to continue strict in and out, empiric antibiotics, IV steroids, nebs, BiPAP. We will get a new echo and also attempt to get her medical records. 07/28/2018. No acute events overnight. 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 She used BiPAP overnight and she tolerated well. Yesterday she was able to walk around the halls without any significant dyspnea on exertion. She is denying any fever , chest pain, chills, nausea, vomiting, diarrhea or any urinary symptoms. 07/29/2018. No acute events overnight. Patient was not able to tolerate her BiPAP however she says she had a good night sleep. On my encounter patient is resting comfortably in her bed in no apparent distress on 3 L of nasal cannula. She is p.o. tolerant and she was able to walk in the hallways with oxygen. She has not had a bowel movement for the last 2 days otherwise she is denying any fever, chills, nausea, vomiting, diarrhea or any constipation. She also wants to be restarted on Xanax that she takes at home nightly. 07/30/2018-and is still complaining of shortness of breath saying she needs oxygen via nasal cannula on a continuous basis. Other than that she is doing okay. Is not using the BiPAP at night because she is unable to tolerate it. Patient denies any fevers chills nausea vomiting diarrhea. 07/31/2018-patient still in mild shortness of breath on oxygen via nasal cannula. pulse ox on 2 L is 97%. Afebrile. No acute events in the last 24 hours. 08/01/2018 patient is comfortably sleeping in the bed on 2 L oxygen via nasal cannula. Not in distress. No complaints. 08/03/2018 patient is comfortable in the chair she has not slight nosebleed because of the dry mucosa.. No complaints today. Patient supposed to go to the retirement yesterday because of the delay in the [facility] number she may end up staying until Sunday. Reason For Visit: CHF,COPD EXACERBATION Physical Exam Vital Signs: Temp Pulse Resp BP Pulse Ox 98.4 F 85 22 H 131/97 H 98 08/03/18 08:22 08/03/18 08:22 08/03/18 08:22 08/03/18 08:22 08/03/18 08:22 Intake & Output 08/02/18 08/03/18 08/04/18 06:59 06:59 06:59 Intake Total 1095 1138 Output Total 450 Balance 645 1138 Weight 128.6 kg Results Laboratory Results: 08/02/18 04:05 08/02/18 04:05 08/03/18 08/03/18 08:10 11:00 Urine Color YELLOW Urine Appearance CLEAR Urine pH 7.0 Ur Specific [place] 1.016 Urine Protein 30 H Urine Glucose (UA) NEGATIVE Urine Ketones NEGATIVE Urine Blood NEGATIVE Urine Nitrite NEGATIVE Ur Leukocyte Esterase NEGATIVE Urine WBC (Auto) 1 Urine RBC (Auto) 0 Stool Occult Blood NEGATIVE Impressions: Chest X-Ray 07/26/18 10:45 IMPRESSION: Cardiomegaly. No failure. No consolidation Chest/Abdomen CTA 07/26/18 13:22 IMPRESSION: No CT angio evidence of acute pulmonary emboli. Minimal bibasilar airspace disease likely atelectasis Assessment & Plan - Diagnosis (1) COPD exacerbation Is this a current diagnosis for this admission?: Yes Plan: (1) COPD exacerbation Is this a current diagnosis for this admission?: Yes Plan: Nebs, empiric antibiotics, BiPAP . Switch steroids to p.o. 07/29/2018 RR 18-20, pulse 69-93, SPO2 100% on 2 L FiO2 32%. 07/28/2018. RR 14-24, SPO2 98 - 100 3 L FiO2 of 32% 07/27/2018. RR 16-20, SPO2 94 3 L FiO2 of 32%. 07/26/2018 CTA negative for any embolus. On 2 L of home oxygen. Plan is to wean her off to 2 L of possible and discharged home tomorrow. 07/30/2018-patient is on 2 L nasal cannula pulse ox is 96-98%. Patient is still complaining of shortness of breath even at rest. During the hospital stay initially she is on BiPAP now she says she is unable to tolerate the BiPAP at night. The of the chest was negative for PE. On 2 L home oxygen. States she is not feeling well to go home today. 07/31/2018 patient is in mild shortness of breath on 2 L nasal cannula oxygen pulse ox is 94-96%. She is still complaining of shortness of breath with minimal activity. Patient says she is unable to tolerate BiPAP at night. Continue the nebulizer treatments. Patient is on albuterol nebulizations every 6 as needed and Xopenex nebulizations every 6 scheduled. Sputum cultures and blood cultures are negative. She is on levofloxacin 750 mg p.o. daily. Planning to discharge tomorrow may be with 2 L oxygen. 08/01/2018 patient was admitted with COPD exacerbation. She is on oxygen 2 L nasal cannula. Pulse oxes are in the 94-96%. She is using BiPAP at night. Plan is to continue albuterol nebulization Xopenex nebulizations. She is on levofloxacin 750 mg p.o. daily. Patient is waiting for placement in [place] [facility]. 08/03/2018 patient has chronic COPD admitted with COPD exacerbation she is not using BiPAP anymore she is on 2 L oxygen nasal cannula. Pulse ox 94-96%. Getting albuterol and Xopenex nebulizations. I am going to discontinue levofloxacin. (2) Stasis dermatitis of both legs Is this a current diagnosis for this admission?: Yes Plan: Improved. Will start on diuretics, leg elevation, strict in and out, cardiac diet. 07/30/2018-with diuretics leg elevation and cardiac diet status dermatitis source improvement. 07/31/2018-plan is to continue the present management. 08/01/2018 plan to continue the present management. 08/03/2018 status dermatitis is resolving. (3) CHF (congestive heart failure) Is this a current diagnosis for this admission?: Yes Plan: Diastolic. SBP 103-126, temperature 98.5, pulse 69-93, SPO2 100% on 2 L FiO2 32%. Weight: 131.8 kg down by about 4 kg since admission. Strict in and out, volume restriction, cardiac diet, diuretics. 07/27/2018. 2D echo shows LV ejection fraction within normal limits. RVSP 30- 40 mmHg. 07/30/2018-patient is not in fluid overload today during the examination. Left ventricular ejection fraction within normal limits. Today's weight is 131.6 kg. 07/31/2018 patient is not in fluid overload. Chest was clear. No pedal edema. Left ventricular ejection fraction within normal. Weight is 131.4 kg today. She lost more than 5 kg. Left ventricular diastolic function was not properly assessed because of atrial fibrillation. 08/01/2018 on physical examination patient is not in fluid overload chest was clear no pedal edema.. The left ventricular ejection fraction is within normal limits as per the echocardiogram report. Dr. Starks is unable to evaluate the left ventricular diastolic function because of the atrial fibrillation. Chronic congestive heart failure. 08/03/2018-chest was clear on examination except for decreased bilateral air entry. No pedal edema. LV function is normal. Unable to assess the diastolic function secondary to atrial fibrillation. Patient has history of chronic heart failure. (4) CAD (coronary artery disease) Is this a current diagnosis for this admission?: Yes Plan: Status post PCI to his stents. Patient is not on antiplatelets. Records unavailable. Continue statins, antiplatelets, beta blockers, TAMMY. Get the records. 07/30/2018-patient has history of coronary artery disease status post PCI with stents. She is on warfarin 7 million p.o. nightly, aspirin 81 mg p.o. daily, Lasix 20 mg p.o. twice daily, ALT 50 mg p.o. every 12 hours. INR is still subtherapeutic 1.22. To increase the Coumadin to 10 mg p.o. daily. 07/31/2018-patient has history of coronary artery disease and atrial fibrillation. INR is 1.32. Patient is on Coumadin 10 mg p.o. nightly. We are going to check PT/INR tomorrow. 08/01/2018 patient has history of coronary artery disease and atrial fibrillation INR is 1.49. She is on Coumadin 10 mg p.o. nightly. We are going to check INR tomorrow. 08/03/2018 patient has a history of coronary artery disease and atrial fibrillation. INR is 2.23. (5) Hx of aortic valve replacement Is this a current diagnosis for this admission?: Yes Plan: and September 2017. Bioprosthetic as per patient. Patient is INR subtherapeutic. Will start warfarin with a goal of INR 2.5-3.5 She was scheduled to get 7 mg Coumadin yesterday but for some reason she only received 4 Called pharmacy to make sure that she gets 7 mg today. INR tomorrow. Adjust warfarin daily with a goal of INR of 2.3 - 3.5. 07/30/2018-patient has history of aortic valve replacement with bioprosthesis. Patient is on Coumadin 7 mg p.o. nightly. It is 1.2 to today. To Coumadin to 10 mg p.o. nightly we will check her INR tomorrow. 07/31/2018 patient has history of aortic valve replacement with bioprosthesis. Coumadin 10 mg p.o. nightly. INR is 1.3 to subtherapeutic. Will check PT/INR tomorrow. 08/01/2018 patient has history of atrial valve replacement aortic valve replacement with bioprosthesis she is on Coumadin 10 mg p.o. nightly INR is 1.49 go to check PT/INR again tomorrow. 08/03/2018 patient history of AORTIC valve replacement bioprosthesis on Coumadin 10 mg p.o. nightly yesterday's INR is 2.25 therapeutic we will going to check PT/INR tomorrow. I decreased the INR to 5 mg p.o. nightly because she had a slight nosebleed today. (6) Hypertension Is this a current diagnosis for this admission?: Yes Plan: 07/30/2018-the blood pressure today is 116/85. Stable. 07/31/2018-patient's blood pressure is 121/67. Stable. Patient is on metoprolol 50 mg p.o. twice daily. 08/01/2018 patient's blood pressure today is 126/76. Pulse rate is 88. Blood pressure is relatively stable. Blood pressure today is 131/87. Stable. (7) A-fib Qualifiers: Atrial fibrillation type: chronic Qualified Code(s): I48.2 - Chronic atrial fibrillation Is this a current diagnosis for this admission?: No Plan: [id number] Score 4. Rate controlled, continue beta-blockers continue Coumadin. Daily INR with a goal of 2-2.5. 07/30/2018 pulse rate today's 90. Patient is on beta-blockers and Coumadin. I increased the Coumadin to 10 mg p.o. nightly. Will check PT/INR tomorrow. 07/31/2018-patient's pulse rate is 95 today. Still in A. fib with rate controlled. 08/03/2018 the heart rate is 90 today. Sinus rhythm. (8) NASIM (acute kidney injury) Is this a current diagnosis for this admission?: Yes Plan: Prerenal. Likely due to over diuresis. Switch IV Lasix to p.o. 20 mg twice daily. Labs: WBC 4.9, Hgb 11.6, platelet 149, sodium 142, potassium 4.0, chloride 9 5, BUN 28, creatinine 1.34, fasting blood glucose 78 Weight: 131.8 kg down by about 4 kg since admission. Of note patient takes 40 mg of Lasix daily at home however as per sister patient is not compliant with her medications. 06/2018-creatinine today is 1.09. Acute kidney injury is resolving. Patient is on Lasix 20 mg p.o. twice daily. 07/31/2018-patient INR is 1.09. Acute kidney injury resolved. 08/01/2018-AK resolved. - Time Time Spent with patient: 15-24 minutes Medications reviewed and adjusted accordingly: Yes Anticipated discharge: [facility]
[2018-08-03] MEDS: ALPRAZOLAM 0.5 MG TABLET PO SCH ×2 (14:44→22:22)
[2018-08-03] MEDS: VENLAFAXINE HCL 75 MG TABLET PO SCH (22:22)
[2018-08-03] MEDS: WARFARIN SODIUM 5 MG TABLET PO SCH (22:22)
[2018-08-04] MEDS: LEVALBUTEROL HCL NEB 1.25 MG/3 ML AMPUL NEB SCH ×4 (02:31→19:29)
[2018-08-04 05:11] LABS: INTERNATIONAL RATION (INR) 2.14
[2018-08-04] MEDS: LANSOPRAZOLE 15 MG TAB.RAP.DR PO SCH ×2 (05:27→17:04)
[2018-08-04] MEDS: BUPROPION HCL 100 MG TABLET PO SCH ×3 (05:27→21:30)
[2018-08-04] MEDS: INSULIN LISPRO 100 UNIT/ML 3 ML VIAL SUBCUT SCH ×3 (07:46→17:04)
[2018-08-04] MEDS: GABAPENTIN 300 MG CAPSULE PO SCH (09:25)
[2018-08-04] MEDS: METOPROLOL TARTRATE 50 MG TABLET PO SCH ×2 (09:25→21:32)
[2018-08-04] MEDS: FUROSEMIDE 20 MG TABLET PO SCH ×2 (09:26→17:03)
[2018-08-04] MEDS: ASPIRIN 81 MG TABLET, CHEWABLE PO SCH (09:26)
[2018-08-04] MEDS: POTASSIUM CHLORIDE 10 MEQ CAPSULE.ER PO SCH (09:26)
[2018-08-04] MEDS: DOCUSATE SODIUM 100 MG CAPSULE PO SCH ×2 (09:26→17:04)
[2018-08-04] MEDS: TIOTROPIUM BROMIDE DPI 5 CAP/KIT (18 MCG/CAP) IH SCH (09:27)
[2018-08-04] MEDS: NYSTATIN/DEXAMETH/DIPHEN SUSP 120 ML PO SCH ×4 (09:28→21:41)
[2018-08-04] MEDS: ALPRAZOLAM 0.5 MG TABLET PO SCH ×3 (09:30→17:06)
--- NOTE | 2018-08-04 15:09 | PDOC PROGRESS REPORT ---
Subjective Progress Note for:: 08/04/18 Subjective:: 07/27/2018. No acute events overnight. Patient is stating that she could not get a good night sleep because of having shortness of breath and anxiety. She was not able to tolerate BiPAP. On my encounter patient just woke up receiving her neb treatments she does not seem to be in any distress and she is saying compared to yesterday she is feeling better, she has been p.o. tolerant and she is having normal bowel and bladder functions. She denies any fever, chest pain , nausea, vomiting, diarrhea, constipation or any urinary symptoms. She stating that her mechanical aortic valve is bioprosthetic but he is she does not remember what type of stent she has. We will attempt to get medical records. Blood pressure has been within normal limits, she has been afebrile, pulse rate of 52-116, FiO2 of 20-32%, saturating in the 90s. CBC CMP within normal limits , INR today is 1.27, ABG she has a carbon dioxide of 57 and PO2 of 79%, room air , CMP looks within normal limits with a BUN of 21 and creatinine of 1.24, A1c is 5.9,. Plan is to continue strict in and out, empiric antibiotics, IV steroids, nebs, BiPAP. We will get a new echo and also attempt to get her medical records. 07/28/2018. No acute events overnight. 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 She used BiPAP overnight and she tolerated well. Yesterday she was able to walk around the halls without any significant dyspnea on exertion. She is denying any fever , chest pain, chills, nausea, vomiting, diarrhea or any urinary symptoms. 07/29/2018. No acute events overnight. Patient was not able to tolerate her BiPAP however she says she had a good night sleep. On my encounter patient is resting comfortably in her bed in no apparent distress on 3 L of nasal cannula. She is p.o. tolerant and she was able to walk in the hallways with oxygen. She has not had a bowel movement for the last 2 days otherwise she is denying any fever, chills, nausea, vomiting, diarrhea or any constipation. She also wants to be restarted on Xanax that she takes at home nightly. 07/30/2018-and is still complaining of shortness of breath saying she needs oxygen via nasal cannula on a continuous basis. Other than that she is doing okay. Is not using the BiPAP at night because she is unable to tolerate it. Patient denies any fevers chills nausea vomiting diarrhea. 07/31/2018-patient still in mild shortness of breath on oxygen via nasal cannula. pulse ox on 2 L is 97%. Afebrile. No acute events in the last 24 hours. 08/01/2018 patient is comfortably sleeping in the bed on 2 L oxygen via nasal cannula. Not in distress. No complaints. 08/03/2018 patient is comfortable in the chair she has not slight nosebleed because of the dry mucosa.. No complaints today. [facility] because of the delay in the [facility] number she may end up staying until Sunday. 08/04/2018 no acute events in the last 24 hours. Patient is comfortably in the bed. [facility]ing for the [facility] at the [facility]. Reason For Visit: CHF,COPD EXACERBATION Physical Exam Vital Signs: Temp Pulse Resp BP Pulse Ox 98.3 F 80 18 122/90 H 98 08/04/18 12:00 08/04/18 14:14 08/04/18 14:14 08/04/18 12:00 08/04/18 14:14 Intake & Output 08/03/18 08/04/18 08/05/18 06:59 06:59 06:59 Intake Total 1138 1158 Balance 1138 1158 Weight 128.5 kg General appearance: PRESENT: no acute distress Head exam: PRESENT: atraumatic Eye exam: PRESENT: PERRLA Mouth exam: PRESENT: dry mucosa Neck exam: ABSENT: carotid bruit, JVD, lymphadenopathy, thyromegaly Respiratory exam: PRESENT: decreased breath sounds Cardiovascular exam: PRESENT: RRR. ABSENT: diastolic murmur, rubs, systolic murmur GI/Abdominal exam: PRESENT: normal bowel sounds, soft. ABSENT: distended, guarding, mass, organolmegaly, rebound, tenderness Neurological exam: PRESENT: alert, awake, oriented to person, oriented to place , oriented to time, oriented to situation, CN II-XII grossly intact. ABSENT: motor sensory deficit Psychiatric exam: PRESENT: appropriate affect, normal mood. ABSENT: homicidal ideation, suicidal ideation Results Laboratory Results: 08/02/18 04:05 08/02/18 04:05 Impressions: Chest X-Ray 07/26/18 10:45 IMPRESSION: Cardiomegaly. No failure. No consolidation Chest/Abdomen CTA 07/26/18 13:22 IMPRESSION: No CT angio evidence of acute pulmonary emboli. Minimal bibasilar airspace disease likely atelectasis Assessment & Plan - Diagnosis (1) COPD exacerbation Is this a current diagnosis for this admission?: Yes Plan: (1) COPD exacerbation Is this a current diagnosis for this admission?: Yes Plan: Nebs, empiric antibiotics, BiPAP . Switch steroids to p.o. 07/29/2018 RR 18-20, pulse 69-93, SPO2 100% on 2 L FiO2 32%. 07/28/2018. RR 14-24, SPO2 98 - 100 3 L FiO2 of 32% 07/27/2018. RR 16-20, SPO2 94 3 L FiO2 of 32%. 07/26/2018 CTA negative for any embolus. On 2 L of home oxygen. Plan is to wean her off to 2 L of possible and discharged home tomorrow. 07/30/2018-patient is on 2 L nasal cannula pulse ox is 96-98%. Patient is still complaining of shortness of breath even at rest. During the hospital stay initially she is on BiPAP now she says she is unable to tolerate the BiPAP at night. The of the chest was negative for PE. On 2 L home oxygen. States she is not feeling well to go home today. 07/31/2018 patient is in mild shortness of breath on 2 L nasal cannula oxygen pulse ox is 94-96%. She is still complaining of shortness of breath with minimal activity. Patient says she is unable to tolerate BiPAP at night. Continue the nebulizer treatments. Patient is on albuterol nebulizations every 6 as needed and Xopenex nebulizations every 6 scheduled. Sputum cultures and blood cultures are negative. She is on levofloxacin 750 mg p.o. daily. Planning to discharge tomorrow may be with 2 L oxygen. 08/01/2018 patient was admitted with COPD exacerbation. She is on oxygen 2 L nasal cannula. Pulse oxes are in the 94-96%. She is using BiPAP at night. Plan is to continue albuterol nebulization Xopenex nebulizations. She is on levofloxacin 750 mg p.o. daily. Patient is waiting for placement in [facility]. 08/03/2018 patient has chronic COPD admitted with COPD exacerbation she is not using BiPAP anymore she is on 2 L oxygen nasal cannula. Pulse ox 94-96%. Getting albuterol and Xopenex nebulizations. I am going to discontinue levofloxacin. 08/04/2018 patient has a history of chronic COPD initially required BiPAP now she is on 2 L nasal cannula. Stable. (2) Stasis dermatitis of both legs Is this a current diagnosis for this admission?: Yes (3) CHF (congestive heart failure) Is this a current diagnosis for this admission?: Yes Plan: Diastolic. SBP 103-126, temperature 98.5, pulse 69-93, SPO2 100% on 2 L FiO2 32%. Weight: 131.8 kg down by about 4 kg since admission. Strict in and out, volume restriction, cardiac diet, diuretics. 07/27/2018. 2D echo shows LV ejection fraction within normal limits. RVSP 30- 40 mmHg. 07/30/2018-patient is not in fluid overload today during the examination. Left ventricular ejection fraction within normal limits. Today's weight is 131.6 kg. 07/31/2018 patient is not in fluid overload. Chest was clear. No pedal edema. Left ventricular ejection fraction within normal. Weight is 131.4 kg today. She lost more than 5 kg. Left ventricular diastolic function was not properly assessed because of atrial fibrillation. 08/01/2018 on physical examination patient is not in fluid overload chest was clear no pedal edema.. The left ventricular ejection fraction is within normal limits as per the echocardiogram report. Dr. Starks is unable to evaluate the left ventricular diastolic function because of the atrial fibrillation. Chronic congestive heart failure. 08/03/2018-chest was clear on examination except for decreased bilateral air entry. No pedal edema. LV function is normal. Unable to assess the diastolic function secondary to atrial fibrillation. Patient has history of chronic heart failure. 08/04/2018 plan is to continue the present management. (4) CAD (coronary artery disease) Is this a current diagnosis for this admission?: Yes Plan: Status post PCI to his stents. Patient is not on antiplatelets. Records unavailable. Continue statins, antiplatelets, beta blockers, TAMMY. Get the records. 07/30/2018-patient has history of coronary artery disease status post PCI with stents. She is on warfarin 7 million p.o. nightly, aspirin 81 mg p.o. daily, Lasix 20 mg p.o. twice daily, ALT 50 mg p.o. every 12 hours. INR is still subtherapeutic 1.22. To increase the Coumadin to 10 mg p.o. daily. 07/31/2018-patient has history of coronary artery disease and atrial fibrillation. INR is 1.32. Patient is on Coumadin 10 mg p.o. nightly. We are going to check PT/INR tomorrow. 08/01/2018 patient has history of coronary artery disease and atrial fibrillation INR is 1.49. She is on Coumadin 10 mg p.o. nightly. We are going to check INR tomorrow. 08/03/2018 patient has a history of coronary artery disease and atrial fibrillation. INR is 2.23. 2018 has history of coronary artery disease and atrial fibrillation INR is 2.14. No complaints of chest pains during the hospital stay. (5) Hx of aortic valve replacement Is this a current diagnosis for this admission?: Yes Plan: and September 2017. Bioprosthetic as per patient. Patient is INR subtherapeutic. Will start warfarin with a goal of INR 2.5-3.5 She was scheduled to get 7 mg Coumadin yesterday but for some reason she only received 4 Called pharmacy to make sure that she gets 7 mg today. INR tomorrow. Adjust warfarin daily with a goal of INR of 2.3 - 3.5. 07/30/2018-patient has history of aortic valve replacement with bioprosthesis. Patient is on Coumadin 7 mg p.o. nightly. It is 1.2 to today. To Coumadin to 10 mg p.o. nightly we will check her INR tomorrow. 07/31/2018 patient has history of aortic valve replacement with bioprosthesis. Coumadin 10 mg p.o. nightly. INR is 1.3 to subtherapeutic. Will check PT/INR tomorrow. 08/01/2018 patient has history of atrial valve replacement aortic valve replacement with bioprosthesis she is on Coumadin 10 mg p.o. nightly INR is 1.49 go to check PT/INR again tomorrow. 08/03/2018 patient history of AORTIC valve replacement bioprosthesis on Coumadin 10 mg p.o. nightly yesterday's INR is 2.25 therapeutic we will going to check PT/INR tomorrow. I decreased the INR to 5 mg p.o. nightly because she had a slight nosebleed today. 08/04/2018 patient is on Coumadin 5 mg p.o. nightly INR is 2.14. Therapeutic. (6) Hypertension Is this a current diagnosis for this admission?: Yes Plan: 07/30/2018-the blood pressure today is 116/85. Stable. 07/31/2018-patient's blood pressure is 121/67. Stable. Patient is on metoprolol 50 mg p.o. twice daily. 08/01/2018 patient's blood pressure today is 126/76. Pulse rate is 88. Blood pressure is relatively stable. Blood pressure today is 131/87. Stable. 08/04/2018 blood pressure today is 122/90. On metoprolol 50 mg p.o. twice a day. We will continue the present management. (7) A-fib Qualifiers: Atrial fibrillation type: chronic Qualified Code(s): I48.2 - Chronic atrial fibrillation Is this a current diagnosis for this admission?: No Plan: [id number] Score 4. Rate controlled, continue beta-blockers continue Coumadin. Daily INR with a goal of 2-2.5. 07/30/2018 pulse rate today's 90. Patient is on beta-blockers and Coumadin. I increased the Coumadin to 10 mg p.o. nightly. Will check PT/INR tomorrow. 07/31/2018-patient's pulse rate is 95 today. Still in A. fib with rate controlled. 08/03/2018 the heart rate is 90 today. Sinus rhythm. 08/04/2018 patient is in sinus rhythm today. Rate controlled. (8) NASIM (acute kidney injury) Is this a current diagnosis for this admission?: Yes Plan: Prerenal. Likely due to over diuresis. Switch IV Lasix to p.o. 20 mg twice daily. Labs: WBC 4.9, Hgb 11.6, platelet 149, sodium 142, potassium 4.0, chloride 9 5, BUN 28, creatinine 1.34, fasting blood glucose 78 Weight: 131.8 kg down by about 4 kg since admission. Of note patient takes 40 mg of Lasix daily at home however as per sister patient is not compliant with her medications. 06/2018-creatinine today is 1.09. Acute kidney injury is resolving. Patient is on Lasix 20 mg p.o. twice daily. 07/31/2018-patient INR is 1.09. Acute kidney injury resolved. 08/01/2018-AK resolved. 08/04/2018 patient admitted with elevated creatinine levels ,they are back to baseline. - Time Time Spent with patient: 15-24 minutes Medications reviewed and adjusted accordingly: Yes Anticipated discharge: [facility]
[2018-08-04] MEDS: WARFARIN SODIUM 5 MG TABLET PO SCH (21:32)
[2018-08-04] MEDS: VENLAFAXINE HCL 75 MG TABLET PO SCH (21:32)
[2018-08-04] MEDS: GUAIFENESIN SYRP 200 MG/10 ML UDC PO PRN (22:07)
[2018-08-05] MEDS: LEVALBUTEROL HCL NEB 1.25 MG/3 ML AMPUL NEB SCH ×3 (02:09→13:54)
[2018-08-05] MEDS: LANSOPRAZOLE 15 MG TAB.RAP.DR PO SCH ×2 (06:06→16:15)
[2018-08-05] MEDS: BUPROPION HCL 100 MG TABLET PO SCH ×2 (06:06→16:15)
[2018-08-05] MEDS: GUAIFENESIN SYRP 200 MG/10 ML UDC PO PRN (06:07)
[2018-08-05] MEDS: INSULIN LISPRO 100 UNIT/ML 3 ML VIAL SUBCUT SCH ×3 (08:11→16:15)
[2018-08-05] MEDS: DOCUSATE SODIUM 100 MG CAPSULE PO SCH ×2 (09:53→17:38)
[2018-08-05] MEDS: POTASSIUM CHLORIDE 10 MEQ CAPSULE.ER PO SCH (09:53)
[2018-08-05] MEDS: ASPIRIN 81 MG TABLET, CHEWABLE PO SCH (09:53)
[2018-08-05] MEDS: FUROSEMIDE 20 MG TABLET PO SCH ×2 (09:53→17:38)
[2018-08-05] MEDS: METOPROLOL TARTRATE 50 MG TABLET PO SCH (09:54)
[2018-08-05] MEDS: ALPRAZOLAM 0.5 MG TABLET PO SCH ×2 (09:54→16:15)
[2018-08-05] MEDS: GABAPENTIN 300 MG CAPSULE PO SCH (09:55)
[2018-08-05] MEDS: NYSTATIN/DEXAMETH/DIPHEN SUSP 120 ML PO SCH ×3 (09:59→17:38)
[2018-08-05] MEDS: TIOTROPIUM BROMIDE DPI 5 CAP/KIT (18 MCG/CAP) IH SCH (10:00)
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
[2018-08-05 18:16] VITALS: BP 122/90
== END 2018-08-05 19:45 | disposition home or self-care (01) | DRG 191 ==
LOC: ER 10:33 → EH 16:43 → 3W 17:51 → 5 07-28 17:58
PROVIDERS: ADMIT Internal Medicine; ATTEND Internal Medicine
DX: J44.1 Chronic obstructive pulmonary disease with (acute) exacerbation (principal); N17.9 Acute kidney failure, unspecified; I50.32 Chronic diastolic (congestive) heart failure; L03.116 Cellulitis of left lower limb; L03.115 Cellulitis of right lower limb; I48.2 Chronic atrial fibrillation; I11.0 Hypertensive heart disease with heart failure; I25.10 Atherosclerotic heart disease of native coronary artery without angina pectoris; E78.5 Hyperlipidemia, unspecified; I87.2 Venous insufficiency (chronic) (peripheral); F41.9 Anxiety disorder, unspecified; Z95.2 Presence of prosthetic heart valve; Z87.891 Personal history of nicotine dependence; Z79.01 Long term (current) use of anticoagulants; Z79.4 Long term (current) use of insulin; Z79.51 Long term (current) use of inhaled steroids; Z79.899 Other long term (current) drug therapy
CPT/HCPCS: 36415; 36600; 71045; 71275; 80053; 81001; 82272; 82550; 82553; 82803; 82962; 83036; 83735; 83880; 84484; 85025; 85027; 85610; 85730; 87040; 87070; 87205; 93005; 93010; 93306; 94660; 96374; 96375; 99285; G8978-GP; G8979-GP; J1815; J1940; J1956; J2405; J2930; J3475; J3490; J7620